=== PATIENT | female | born 1965 | race Caucasian/White ===

== ENCOUNTER → 2017-11-22 | Outpatient (CLI) | payer BC ==
[~2017-11-22] MED LIST: CIPR500T78 PO; HYDR-1231 PO; METR500T PO
== END ==
LOC: CARD 10:23
PROVIDERS: ATTEND Family Medicine
DX: R07.9 Chest pain, unspecified (principal); I10 Essential (primary) hypertension
CPT/HCPCS: 93306

== ENCOUNTER 2017-11-25 19:41 | Observation (INO) | payer BC ==
[~2017-11-25] VITALS: Ht 162.6 cm; Wt 104.3 kg
[2017-11-25] MEDS ORDERED: ASPIRIN 81 MG CHEW (CHILDREN'S ASA) PO ONE (20:00)
[2017-11-25] MEDS ORDERED: NITROGLYCERIN 0.4 MG SL TABS BTL 25'S SL PRN (20:00)
--- NOTE | 2017-11-25 20:00 | ED Chest Pain ---
General Chief Complaint: Chest Pain Stated Complaint: CHEST PAIN Nursing Triage Note: pt presents to ed with complaint of chest pressure, low heart ratte, heart palpitations, light headedness, and left arm pain/tingling. Nursing Sepsis Screen: No Definite Risk Source: patient Exam Limitations: no limitations History of Present Illness Date Seen by Provider: Nov 25, 2017 Time Seen by Provider: 19:57 Initial Comments To ER with reports of central chest tightness that began about one hour ago. She rates this at 5 out of 10. This radiates down the left arm as a tingling sensation. She's been having this for the past few weeks intermittently. Primary care Dr. Marquez has ordered an echocardiogram which has been done a few days ago. She is scheduled for a stress test, this was initially scheduled for one month away but her sister who works here was able to get this moved up to next week. Tonight, the chest pain was associated with shortness of breath and nausea so sister who is a nurse insisted she come to the emergency room for evaluation. She does feel intermittently anxious and had difficulty concentrating. She cannot identify any modifying factors of this chest pain. She is a nonsmoker. Mother and father both had CHF. Mother had an CT. Patient has no known personal history of cardiac disease. She is scheduled to see Dr. Campbell but has not seen him yet. Timing/Duration: 1-2 days Severity/Quality: moderate Activities at Onset: none ASA po CLINICAL PRODUCT MANAGER: No NTG SL CLINICAL PRODUCT MANAGER: No Associated Symptoms: nausea/vomiting Allergies and Home Medications Allergies Coded Allergies: No Known Drug Allergies (Unverified , 07/30/14) Home Medications Ciprofloxacin HCl 500 Mg Tablet, 500 MG PO BID, #20 Prescribed by: PETEY ARENAS on 07/30/142129 Hydrochlorothiazide 12.5 Mg Tablet, (Reported) Hydrocodone Bit/Acetaminophen 1 Tab Tablet, 1 TAB PO Q6H PRN for PAIN, #14 Prescribed by: PETEY ARENAS on 07/30/142129 Lisinopril/Hydrochlorothiazide 1 Each Tablet, (Reported) Metronidazole 500 Mg Tab, 1 EACH PO TID, #30 Prescribed by: PETEY ARENAS on 07/30/142129 Review of Systems Constitutional: see HPI EENTM: No Symptoms Reported Respiratory: No Symptoms Reported, Shortness of Air Cardiovascular: See HPI, Chest Pain, Lightheadedness, Palpitations ( intermittent sensation of palpitations associated with anxiety) Genitourinary: No Symptoms Reported Musculoskeletal: no symptoms reported Skin: no symptoms reported Psychiatric/Neurological: See HPI, Anxiety Endocrine: No Symptoms Reported Hematologic/Lymphatic: No Symptoms Reported Past Kiohztw-Wznsno-Ujdgza Hx Patient Social History Recent Foreign Travel: No Contact w/Someone Who Travel: No Recent Infectious Disease Expo: No 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 Gastrointestinal Gastrointestinal Disorders: Hiatal Hernia Physical Exam Vital Signs Vital Sign - Last 12Hours 11/25/17 19:44 Temp 97.6 Pulse 59 Resp 18 B/P (MAP) 201/90 (127) Pulse Ox 100 O2 Delivery Room Air Capillary Refill : Less Than 3 Seconds General Appearance: No Apparent Distress, WD/WN, Anxious HEENT: PERRL/EOMI, TMs Normal Respiratory: Chest Non Tender, Lungs Clear, Normal Breath Sounds, No Accessory Muscle Use, No Respiratory Distress Cardiovascular: Regular Rate, Rhythm, Normal Peripheral Pulses, Other (sinus at 55-65 without ectopy) Gastrointestinal: Normal Bowel Sounds, Non Tender, Soft Extremity: Normal Capillary Refill, Normal Inspection Neurologic/Psychiatric: Alert, No Motor/Sensory Deficits Skin: Normal Color, Warm/Dry Progress/Results/Core Measures Results/Orders Lab Results Laboratory Tests Test 11/25/17 19:57 Range/Units White Blood Count 11.7 H 4.3-11.0 10^3/uL Red Blood Count 4.95 4.35-5.85 10^6/uL Hemoglobin 14.5 11.5-16.0 G/DL Hematocrit 42 35-52 % Mean Corpuscular Volume 85 80-99 FL Mean Corpuscular Hemoglobin 29 25-34 PG Mean Corpuscular Hemoglobin Concent 35 32-36 G/DL Red Cell Distribution Width 12.9 10.0-14.5 % Platelet Count 320 130-400 10^3/uL Mean Platelet Volume 11.3 H 7.4-10.4 FL Neutrophils (%) (Auto) 64 42-75 % Lymphocytes (%) (Auto) 25 12-44 % Monocytes (%) (Auto) 9 0-12 % Eosinophils (%) (Auto) 1 0-10 % Basophils (%) (Auto) 1 0-10 % Neutrophils # (Auto) 7.6 1.8-7.8 X 10^3 Lymphocytes # (Auto) 3.0 1.0-4.0 X 10^3 Monocytes # (Auto) 1.0 0.0-1.0 X 10^3 Eosinophils # (Auto) 0.1 0.0-0.3 10^3/uL Basophils # (Auto) 0.1 0.0-0.1 10^3/uL Prothrombin Time 13.0 12.2-14.7 SEC INR Comment 1.0 0.8-1.4 Activated Partial Thromboplast Time 31 24-35 SEC D-Dimer < 0.27 0.00-0.49 UG/ML Sodium Level 130 L 135-145 MMOL/L Potassium Level 3.7 3.6-5.0 MMOL/L Chloride Level 95 L 98-107 MMOL/L Carbon Dioxide Level 23 21-32 MMOL/L Anion Gap 12 5-14 MMOL/L Blood Urea Nitrogen 12 7-18 MG/DL Creatinine 0.79 0.60-1.30 MG/DL Estimat Glomerular Filtration Rate > 60 BUN/Creatinine Ratio 15 Glucose Level 112 H 70-105 MG/DL Calcium Level 9.7 8.5-10.1 MG/DL Magnesium Level 2.1 1.8-2.4 MG/DL Total Bilirubin 0.8 0.1-1.0 MG/DL Aspartate Amino Transf (AST/SGOT) 20 5-34 U/L Alanine Aminotransferase (ALT/SGPT) 26 0-55 U/L Alkaline Phosphatase 82 40-136 U/L Myoglobin 29.6 10.0-92.0 NG/ML Troponin I < 0.30 <0.30 NG/ML Total Protein 8.2 6.4-8.2 GM/DL Albumin 4.6 H 3.2-4.5 GM/DL My Orders Orders - PETEY ARENAS PROTECTIVE SERVICE SPECIALIST Cbc With Automated Diff (11/25/17 19:56) Magnesium (11/25/17 19:56) Chest 1 View, Ap/Pa Only (11/25/17 19:56) Ekg Tracing (11/25/17 19:56) Cardiac Profile 1 (11/25/17 19:56) Comprehensive Metabolic Panel (11/25/17 19:56) Myoglobin Serum (11/25/17 19:56) Protime With Inr (11/25/17 19:56) Partial Thromboplastin Time (11/25/17 19:56) O2 (11/25/17 19:56) Monitor-Rhythm Ecg Trace Only (11/25/17 19:56) Lipid Panel (11/26/17 06:00) Aspirin Chewable Tablet (Baby Aspirin Ch (11/25/17 20:00) Nitroglycerin 0.4 Mg Btl 25's (Nitrostat (11/25/17 20:00) Saline Lock/Iv-Start (11/25/17 19:56) Fibrin Degradation Products (11/25/17 20:00) Medications Given in ED Current Medications Medications Dose Ordered Sig/Freya Route Start Time Stop Time Status Last Admin Dose Admin Aspirin 324 mg ONCE ONCE PO 11/25/17 20:00 11/25/17 20:01 DC 11/25/17 20:01 324 MG Nitroglycerin 0.4 mg UD PRN SL 11/25/17 20:00 11/25/17 20:01 0.4 MG Vital Signs/I&O Vital Sign - Last 12Hours 11/25/17 19:44 Temp 97.6 Pulse 59 Resp 18 B/P (MAP) 201/90 (127) Pulse Ox 100 O2 Delivery Room Air Blood Pressure Mean: 127 Departure Impression Impression: Primary Impression: Chest pain Disposition: ADMITTED INPATIENT Condition: Stable Admissions Decision to Admit Reason: Admit from ER (General) Decision to Admit/Date: Nov 25, 2017 Time/Decision to Admit Time: 20:00 Departure-Patient Inst. Referrals: WILLIAM MARQUEZ DO (PCP/Family) Primary Care Physician PETEY ARENAS APRN Nov 25, 2017 20:00
[2017-11-25 20:09] LABS: BASOPHILS # (AUTO) 0.1 10^3/uL (0.0-0.1); BASOPHILS % (AUTO) 1 % (0-10); EOSINOPHILS # (AUTO) 0.1 10^3/uL (0.0-0.3); EOSINOPHILS % (AUTO) 1 % (0-10); HEMATOCRIT 42 % (35-52); HEMOGLOBIN 14.5 G/DL (11.5-16.0); LYMPHOCYTES % (AUTO) 25 % (12-44); MEAN CORPUSCULAR HEMOGLOBIN 29 PG (25-34); MEAN CORPUSCULAR HGB CONC 35 G/DL (32-36); MEAN CORPUSCULAR VOLUME 85 FL (80-99); MEAN PLATELET VOLUME 11.3 FL (7.4-10.4); MONOCYTES % (AUTO) 9 % (0-12); NEUTROPHILS # (AUTO) 7.6 X 10^3 (1.8-7.8); NEUTROPHILS % (AUTO) 64 % (42-75); PLATELET COUNT 320 10^3/uL (130-400); RED BLOOD COUNT 4.95 10^6/uL (4.35-5.85); RED CELL DISTRIBUTION WIDTH 12.9 % (10.0-14.5); WHITE BLOOD COUNT 11.7 10^3/uL (4.3-11.0)
[2017-11-25] MEDS ORDERED: HYDR12.56 PO (20:14)
[2017-11-25] MEDS ORDERED: LISI1TAB6 PO (20:14)
[2017-11-25 20:19] LABS: ALANINE AMINOTRANSFERASE 26 U/L (0-55); ALBUMIN 4.6 GM/DL (3.2-4.5); ALKALINE PHOSPHATASE 82 U/L (40-136); BILIRUBIN,TOTAL 0.8 MG/DL (0.1-1.0); BUN/CREATININE RATIO 15; CALCIUM 9.7 MG/DL (8.5-10.1); CARBON DIOXIDE 23 MMOL/L (21-32); CHLORIDE 95 MMOL/L (98-107); CREATININE SERUM 0.79 MG/DL (0.60-1.30); GFR ESTIMATED > 60; GLUCOSE 112 MG/DL (70-105); MAGNESIUM 2.1 MG/DL (1.8-2.4); POTASSIUM 3.7 MMOL/L (3.6-5.0); SODIUM 130 MMOL/L (135-145); TOTAL PROTEIN 8.2 GM/DL (6.4-8.2)
--- NOTE | 2017-11-25 20:23 | Diagnostic Imaging Report ---
CHEST 1 VIEW, AP/PA ONLY Indication: Chest pressure Comparison: 06/01/2016 Findings: No focal airspace disease in the visualized lungs. Please note that the posterior lower lobes are poorly evaluated by portable radiography. No pleural effusion or pneumothorax. Normal cardiomediastinal silhouette. Impression: No acute cardiopulmonary process by portable radiography. Dictated by: Dictated on workstation # [id number]
[2017-11-25 20:26] LABS: MYOGLOBIN SERUM 29.6 NG/ML (10.0-92.0)
[2017-11-25 21:40] VITALS: BP 166/81
[2017-11-25] MEDS ORDERED: NS IV 1000 ML 1,000 ML ONE (22:41)
[2017-11-25] MEDS: NS IV 1000 ML 1,000 ML IV SCH (22:53)
[2017-11-26] VITALS (7 sets, daily range): BP systolic 115–193; BP diastolic 57–84
[2017-11-26 06:26] LABS: CHOLESTEROL 174 MG/DL (< 200); HDL CHOLESTEROL 47 MG/DL (40-60); TRIGLYCERIDES 100 MG/DL (<150); VLDL CHOLESTEROL 20 MG/DL (5-40)
[2017-11-26] MEDS ORDERED: CATHETER FLUSH 10 ML SYR IV PRN (07:00)
[2017-11-26] MEDS ORDERED: INFLUENZA TRIvalent 2017-2018 0.5 ML/45 MCG SYR IM ONE (07:00)
[2017-11-26] MEDS ORDERED: REGADENOSON 0.4 MG/5 ML SYR (LEXISCAN) IV ONE ×2 (08:44→09:15)
--- NOTE | 2017-11-26 09:06 | Consultation-Cardiology ---
HPI-Cardiology Cardiology Consultation: Date of Consultation 11/26/17 Date of Admission Attending Physician Rafaela Marquez DO Admitting Physician Rafaela Marquez DO Consulting Physician Edilma MCLAUGHLIN MD HPI: Time Seen by Provider: 09:10 Chief Complaint: Chest pain This is a 52-year-old lady with history of hypertension who presents to the ER with a complaint of central chest tightness for around an hour. Intensity 5/ 10. Radiates to the left arm. She has been having recurrent episodes of chest pain for the last few weeks. Primary physician is Dr. Marquez. She also complains of associated shortness of breath and nausea. She denies active smoking. Mother had history of CHF. She denies having history of diabetes or hyperlipidemia. T Review of Systems-Cardiology Review of Systems Constitutional: No As described under HPI, No no symptoms reported, No chills, No fever, No lightheadedness, No malaise, No tiredness, No weight loss, No weight gain, No other Eyes: No As described under HPI, No no symptoms reported, No blindness, No blurred vision, No contact lenses, No drainage, No decreased acuity, No foreign body sensation, No glasses, No inflammation, No pain, No photophobia, No previous injury, No shadows, No tunnel vision, No other, No vision change Ears/Nose/Throat: No As described under HPI, No no symptoms reported, No chronic hearing loss, No epistaxis, No ear discharge, No ear pain, No loose teeth, No mouth pain, No mouth swelling, No nasal drainage, No nose pain, No recent hearing loss, No throat pain, No throat swelling, No ulcerations, No other Respiratory: No no symptoms reported, No As described under HPI, No cough, No orthopnea, No shortness of breath, No SOB with excertion, No SOB at rest, No stridor, No wheezing, No other Cardiovascular: chest pain Gastrointestinal: No no symptoms reported, No As described under HPI, No abdomen distended, No abdominal pain, No blood streaked bowels, No constipation , No diarrhea, No difficulty swallowing, No nausea, No poor appetite, No poor fluid intake, No rectal bleeding, No vomiting, No other, No nausea/vomiting/ diarrhea, No stool coloration changes Genitourinary: No no symptoms reported, No As described under HPI, No burning, No dysuria, No discharge, No frequency, No flank pain, No hematuria, No incontinence, No pain, No urgency, No other, No urine frequency changes, No urine coloration changes Musculoskeletal: No no symptoms reported, No As describe under HPI, No back pain, No gout, No joint pain, No joint swelling, No muscle pain, No muscle stiffness, No neck pain, No other Skin: No no symptoms reported, No As described under HPI, No change in color, No change in hair/nails, No dryness, No lesions, No lumps, No rash, No other, No skin related problems, No ulcerations, No rash on exposed areas, No ulcerations on exposed areas Psychiatric/Neurological: No no symptoms reported, No As described under HPI, No anxiety, No depression, No emotional problems, No headache, No numbness, No pre-existing deficit, No seizure, No tingling, No tremors, No weakness, No other , No focal weakness, No syncope MQS-Lvdruw-Pptulz Hx Patient Social History Alcohol Use: Occasionally Uses Recreational Drug Use: No Smoking Status: Never a Smoker Recent Foreign Travel: No Recent Infectious Disease Expo: No Hospitalization with Isolation: Denies Physical Abuse Screen: No Sexual Abuse: No Past Medical History PMH As described under Assessment. Allergies and Home Medications Allergies Coded Allergies: No Known Drug Allergies (Unverified , 07/30/14) Home Medications Aspirin 81 Mg Tab.chew, 81 MG PO HS, (Reported) Lisinopril/Hydrochlorothiazide 1 Each Tablet, 1 TAB PO DAILY, (Reported) Physical Exam-Cardiology Physical Exam Vital Signs/I&O Vital Sign - Last 12Hours 11/26/17 11/26/17 11/26/17 11/26/17 00:00 01:00 04:00 07:45 Temp 97.4 97.5 Pulse 65 51 53 Resp 16 17 B/P (MAP) 115/57 (76) 151/71 (97) Pulse Ox 97 99 99 O2 Delivery Room Air Room Air Room Air 11/26/17 11/26/17 11/26/17 11/26/17 08:00 08:56 09:02 09:06 Temp 98.0 Pulse 51 60 127 103 Resp 20 B/P (MAP) 179/79 (112) 135/72 (93) 193/84 (120) Pulse Ox 99 99 99 99 O2 Delivery Room Air Capillary Refill : Less Than 3 Seconds Constitutional: No appears stated age, No AAO x 3, No apparent distress, No PERRL, No well-developed, No well-nourished, No other HEENT: No PERRL, No normal ENT inspection, No TMs normal, No pharynx normal, No scleral icterus (R), No scleral icterus (L), No pale conjunctivae (R), No pale conjunctivae (L), No photophobia, No TM abnormal (R), No TM abnormal (L), No pharyngeal erythema, No tonsillar exudate, No other, No discharge, No EOMI, No hearing is well preserved, No hard of hearing, No oral hygience is good, No ulceration, No xanthelasmas are seen Neck: No non-tender, No full range of motion, No supple, No normal inspection, No carotid bruit, No limited range of motion, No lymphadenopathy (R), No lymphadenopathy (L), No tender lateral, No tender midline, No thyromegaly, No other, No carotid pulses are 2 + bilaterally, No with good upstrokes Respiratory: No accessory muscle use, No respiratory distress, No chest tender , No chest expansion is symmetric, No chest is bilaterally symmetric, No lungs clear to percussion, No lungs clear to auscultation, No crackles, No rhonchi, No rales, No stridor, No wheezing, No pleural rub, No other Cardiovascular: regular rate-rhythm, No irregularly irregular, No extra beats, No parasternal heave is noted, No JVD, No edema, No bradycardia, No tachycardia , No point of maximal impulse, No cardiac thrills are palpable, S1 and S2, No gallop/S3, No gallop/S4, No diastolic murmur, No systolic murmur, No friction rub, No click, No other Gastrointestinal: No tender, No soft, No round, No distended, No pulsatile mass , No organomegaly, No guarding, No rebound, No tenderness, No hernia, No mass, No audible bowel sounds, No abnormal bowel sounds, No abdominal bruits, No spleenomegaly, No other Rectal: deferred Extremities: No normal range of motion, No non-tender, No normal inspection, No pedal edema, No calf tenderness, No normal capillary refill, No pelvis stable , No calf tenderness, No inflammation, No pedal edema, No slow capillary refill , No swelling, No other, No abrasion, No clubbing, No cyanosis, No ecchymosis, No laceration, No no lower extremity edema bilateral, No significant edema, No tenderness, No wound Neurologic/Psychiatric: No slot router II-XII nml as tested, No no motor/sensory deficits, No alert, No normal mood/affect, No oriented x 3, No abnormal cerebellar tests, No abnormal slot router II-XII, No abnormal gait, No aphasia, No EOM palsy, No facial droop, No motor weakness, No sensory deficit, No depressed affect, No disoriented x 3, No other, No grossly intact, No power is 5/5 both on sides Skin: No normal color, No warm/dry, No cyanosis, No cool, No diaphoresis, No damp, No ecchymosis, No jaundice, No mottled, No pallor, No rash, No tattoos/ piercings, No ulcerations, No rash on exposed areas, No ulcerations on exposed areas, No other Data Review Labs Laboratory Tests 11/25/17 19:57: White Blood Count 11.7H, Red Blood Count 4.95, Hemoglobin 14.5, Hematocrit 42, Mean Corpuscular Volume 85, Mean Corpuscular Hemoglobin 29, Mean Corpuscular Hemoglobin Concent 35, Red Cell Distribution Width 12.9, Platelet Count 320, Mean Platelet Volume 11.3H, Neutrophils (%) (Auto) 64, Lymphocytes (%) (Auto) 25 , Monocytes (%) (Auto) 9, Eosinophils (%) (Auto) 1, Basophils (%) (Auto) 1, Neutrophils # (Auto) 7.6, Lymphocytes # (Auto) 3.0, Monocytes # (Auto) 1.0, Eosinophils # (Auto) 0.1, Basophils # (Auto) 0.1, Prothrombin Time 13.0, INR Comment 1.0, Activated Partial Thromboplast Time 31, D-Dimer < 0.27, Sodium Level 130L, Potassium Level 3.7, Chloride Level 95L, Carbon Dioxide Level 23, Anion Gap 12, Blood Urea Nitrogen 12, Creatinine 0.79, Estimat Glomerular Filtration Rate > 60, BUN/Creatinine Ratio 15, Glucose Level 112H, Calcium Level 9.7, Magnesium Level 2.1, Total Bilirubin 0.8, Aspartate Amino Transf (AST /SGOT) 20, Alanine Aminotransferase (ALT/SGPT) 26, Alkaline Phosphatase 82, Myoglobin 29.6, Troponin I < 0.30, Total Protein 8.2, Albumin 4.6H 11/26/17 02:00: Troponin I < 0.30 11/26/17 05:35: Triglycerides Level 100, Cholesterol Level 174, LDL Cholesterol Direct 112, VLDL Cholesterol 20, HDL Cholesterol 47 ECG Impression ECG Initial ECG Rhythm: Normal Sinus Initial ECG Impression: Normal A/P-Cardiology Assessment/Admission Diagnosis Chest pain, Hypertension Plan Acute coronary syndrome has been ruled out with negative serial troponin and EKG. We'll request echocardiogram and pharmacological nuclear stress test. If the nuclear stress test is abnormal, coronary angiography will be recommended. Patient will continue lisinopril and hydrochlorothiazide for hypertension. Thank you for your consultation. Please call me if you have any questions. Maureen Mclaughlin MD, FACP, FACC, FSCAI, FHRS, CCDS Interventional Cardiology Cardiac Electrophysiology Vascular Medicine and Endovascular Interventions Clinical Quality Measures AMI/AHF: ASA po Prior to arrival: No DVT/VTE Risk/Contraindication: Risk Factor Score Per Nursin RFS Level Per Nursing on Admit: 2=Moderate Edilma MCLAUGHLIN MD Nov 26, 2017 09:06
[2017-11-26] MEDS ORDERED: ASPI-999 PO (10:38)
[2017-11-26] MEDS: NS IV 1000 ML 1,000 ML IV SCH (10:42)
--- NOTE | 2017-11-26 11:39 | History & Physicial ---
History of Present Illness History of Present Illness Reason for visit/HPI This is a 52 year old female with a history of hypertension who presented to the emergency room with substernal chest pressure radiating to her left arm. She also had associated shortness of breath and nausea. She has had intermittent chest pressure the past few weeks and was in the process of an outpatient cardiac workup. However, this episode had lasted at least an hour so she presented to the emergency room. She also reports palpitations. She was anxious with an elevated blood pressure in the emergency room. Her cardiac enzymes and EKG were normal and her blood pressure and chest pain improved after nitro. It was decided to admit her for observation and cardiac evaluation. Date of Admission Nov 25, 2017 at 8:56 pm Date Seen by Provider: Nov 26, 2017 Time Seen by Provider: 11:34 I consulted on this patient on 11/26/17 11:34 Attending Physician Rafaela Marquez DO Admitting Physician Rafaela Marquez DO Consult Allergies and Home Medications Allergies Coded Allergies: No Known Drug Allergies (Unverified , 07/30/14) Home Medications Aspirin 81 Mg Tab.chew, 81 MG PO HS, (Reported) Lisinopril/Hydrochlorothiazide 1 Each Tablet, 1 TAB PO DAILY, (Reported) Past Zvgxwlq-Twocsw-Npaezm Hx Patient Social History Alcohol Use: Occasionally Uses Recreational Drug Use: No Smoking Status: Never a Smoker Physical Abuse Screen: No Sexual Abuse: No Recent Foreign Travel: No Contact w/other who traveled: No Recent Infectious Disease Expo: No Seasonal Allergies Seasonal Allergies: Yes Surgeries Yes (TUBAL SX, EGD, breast implants, colonoscopy) Hysterectomy Respiratory Yes Currently Using CPAP: Yes Cardiovascular Yes Hypertension, Palpitations 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 Genitourinary No Gastrointestinal Yes Diverticulosis Musculoskeletal Yes Arthritis Endocrine History of Endocrine Disorders: No HEENT History of HEENT Disorders: No Cancer No Psychosocial History of Psychiatric Problem: No Integumentary History of Skin or Integumenta: Yes (SHINGLES) Blood Transfusions History of Blood Disorders: No Constitutional: weakness EENTM: No see HPI, No no symptoms reported, No ear discharge, No hearing loss, No ear pain, No blurred vision, No double vision, No eye pain, No tearing, No vision loss, No dental problems, No hoarseness, No mouth pain, No mouth swelling , No epistaxis, No nose congestion, No nose pain, No throat pain, No throat swelling, No other Respiratory: short of breath Cardiovascular: chest pain, palpitations Gastrointestinal: No RUQ, No LUQ, No RLQ, No LLQ, No no symptoms reported, No see HPI, No abdominal pain, No constipation, No diarrhea, No dysphagia, No hematemesis, No heartburn, No jaundice, No loss of appetite, No melena, No nausea, No vomiting, No other Genitourinary: No no symptoms reported, No see HPI, No decreased output, No discharge, No dysuria, No frequency, No hematuria, No hesitancy, No incontinence , No nocturia, No pain, No other Musculoskeletal: other (CP radiates to left arm) Skin: No no symptoms reported, No see HPI, No change in color, No change in hair/nails, No dryness, No hx of skin cancer, No lesions, No lumps, No pruritus , No rash, No other Psychiatric/Neurological: Anxiety, Headache Physical Exam Vital Signs Vital Sign - Last 12Hours 11/25/17 19:44 Temp 97.6 Pulse 59 Resp 18 B/P (MAP) 201/90 (127) Pulse Ox 100 O2 Delivery Room Air Capillary Refill : Less Than 3 Seconds General Appearance: No Apparent Distress HEENT: Pharynx Normal Neck: Supple Respiratory: Lungs Clear Cardiovascular: Regular Rate, Rhythm, Gallop/S4 Gastrointestinal: Normal Bowel Sounds, Non Tender, Soft Rectal: Deferred Back: No CVA Tenderness Extremity: Non Tender, No Calf Tenderness, Pedal Edema (trace) Neurologic/Psychiatric: Alert, Oriented x3 Skin: Normal Color, Warm/Dry Comments Laboratory Tests 11/25/17 19:57: White Blood Count 11.7H, Red Blood Count 4.95, Hemoglobin 14.5, Hematocrit 42, Mean Corpuscular Volume 85, Mean Corpuscular Hemoglobin 29, Mean Corpuscular Hemoglobin Concent 35, Red Cell Distribution Width 12.9, Platelet Count 320, Mean Platelet Volume 11.3H, Neutrophils (%) (Auto) 64, Lymphocytes (%) (Auto) 25 , Monocytes (%) (Auto) 9, Eosinophils (%) (Auto) 1, Basophils (%) (Auto) 1, Neutrophils # (Auto) 7.6, Lymphocytes # (Auto) 3.0, Monocytes # (Auto) 1.0, Eosinophils # (Auto) 0.1, Basophils # (Auto) 0.1, Prothrombin Time 13.0, INR Comment 1.0, Activated Partial Thromboplast Time 31, D-Dimer < 0.27, Sodium Level 130L, Potassium Level 3.7, Chloride Level 95L, Carbon Dioxide Level 23, Anion Gap 12, Blood Urea Nitrogen 12, Creatinine 0.79, Estimat Glomerular Filtration Rate > 60, BUN/Creatinine Ratio 15, Glucose Level 112H, Calcium Level 9.7, Magnesium Level 2.1, Total Bilirubin 0.8, Aspartate Amino Transf (AST /SGOT) 20, Alanine Aminotransferase (ALT/SGPT) 26, Alkaline Phosphatase 82, Myoglobin 29.6, Troponin I < 0.30, Total Protein 8.2, Albumin 4.6H 11/26/17 02:00: Troponin I < 0.30 11/26/17 05:35: Triglycerides Level 100, Cholesterol Level 174, LDL Cholesterol Direct 112, VLDL Cholesterol 20, HDL Cholesterol 47 Assessment/Plan Assessment and Plan 1. Chest Pain, Uncertain Etiology--monitor on telemetry, repeat cardiac enzymes , stress test per cardiology 2. Hypertension--responded to nitro in the ER, will monitor and resume home meds or change meds per cardioly once no longer NPO and stress test results reviewed 3. Anxiety--stable 4. Hyponatremia--hyrate with NS Problems: Clinical Quality Measures AMI/AHF: ASA po Prior to arrival: No DVT/VTE Risk/Contraindication: Risk Factor Score Per Nursin RFS Level Per Nursing on Admit: 2=Moderate RAFAELA MARQUEZ DO Nov 26, 2017 11:39 am
--- NOTE | 2017-11-26 13:32 | Cardiology Stress Test Report ---
Stress Test Report Type of NM Stress Test: Test Type: LEXISCAN 0.4MG/5ML Date of Procedure/Referring: PCP Rafaela Marquez DO Admitting Physician Rafaela Marquez DO Indications: Chest pain, hypertension Baseline Heart Rate: 58 Baseline Blood Pressure: Blood Pressure Systolic: 135 Blood Pressure Diastolic: 72 Baseline EKG: Baseline EKG: sinus rhythm Summary: The patient the patient was brought to the stress lab after informed consent was taken. Lexiscan stress test was performed according to the protocol. 0.4 mg of IV Lexiscan was given. Low-grade exercise was performed. Baseline EKG showed sinus rhythm at 58 BPM. Blood pressure 135/72 mmHg. Maximum heart rate of 147 BPM and blood pressure of 193/84 mmHg. No chest pain, EKG changes or arrhythmias was noted. 10.79 mCi of Myoview was given for rest imaging and 33.0 mCi of Myoview was given for stress imaging. Transient ischemic dilatation 1.08. EF 63 percent with normal wall motion. No perfusion defects on rest and stress imaging. Conclusion: 1. Pharmacological nuclear stress test is normal. 2. Normal ejection fraction with no wall motion abnormalities. 3. Severe hypertension. 4. No perfusion defect on stress or rest imaging. Edilma WILLAMS MD Nov 26, 2017 1:32 pm
--- OUTSIDE RECORDS SUMMARY | 2017-11-28 06:06 | XMS REPORT | Continuity of Care Document ---
Author Author [facility] Organization [facility] Address Unknown Phone Unavailable Allergies Active Description Code Type Severity Reaction Onset Reported/Identified Relationship to Patient Clinical Status Yes No Known Drug Allergies [id number] Drug Allergy Unknown N/A 07/30/2014 Medications There is no data. Problems Date Dx Coded Attending Type Code Diagnosis Diagnosed By 07/30/2014 PETEY ARENAS APRN Ot 562.11 DIVERTICULITIS COLON (W/O MENT OF HEMORR 07/30/2014 PETEY ARENAS APRN Ot 780.60 FEVER, UNSPECIFIED 05/27/2016 JACKLYN MARTINEZ Ot V43.82 BREAST REPLACEMENT STATUS 05/27/2016 JACKLYN MARTINEZ Ot V76.12 OTH SCREEN MAMMO-MALIGN NEOPLASM OF SOY 05/27/2016 ORENDER DO, WILLIAM S Ot R05 COUGH 05/28/2016 YULY BHATT APRN Ot R05 COUGH 05/29/2016 ORENDER DO, WILLIAM S Ot R05 COUGH 06/02/2016 ORENDER DO, WILLIAM S Ot R05 COUGH 06/10/2016 ORENDER DO, WILLIAM S Ot R05 COUGH 06/12/2016 YULY BHATT AIRCRAFT DE ICER INSTALLER Ot R05 COUGH 06/12/2016 ORENDER DO, WILLIAM S Ot R05 COUGH 06/29/2016 ORENDER DO, WILLIAM S Ot R05 COUGH 07/22/2016 ORENDER DO, WILLIAM S Ot R05 COUGH 10/01/2016 JACKLYN MARTINEZ Ot V43.82 BREAST REPLACEMENT STATUS 10/01/2016 JACKLYN MARTINEZ Ot V76.12 OTH SCREEN MAMMO-MALIGN NEOPLASM OF SOY 10/01/2016 ORENDER DO, WILLIAM S Ot R05 COUGH 10/01/2016 YULY BHATT APRN Ot R05 COUGH 10/01/2016 ORENDER DO, WILLIAM S Ot R05 COUGH 10/02/2016 ORENDER DO, WILLIAM S Ot G47.33 OBSTRUCTIVE SLEEP APNEA (ADULT) (PEDIATR 02/16/2017 YULY BHATT AIRCRAFT DE ICER INSTALLER Ot R05 COUGH 11/18/2017 ORENDER DO, WILLIAM S Ot R05 COUGH 11/18/2017 YULY BHATT AIRCRAFT DE [employer] INSTALLER Ot R05 COUGH 11/18/2017 ORENDER DO, WILLIAM S Ot R05 COUGH 11/22/2017 JACKLYN MARTINEZ Ot V43.82 BREAST REPLACEMENT STATUS 11/22/2017 JACKLYN MARTINEZ Ot V76.12 OTH SCREEN MAMMO-MALIGN NEOPLASM OF SOY 11/22/2017 ORENDER DO, WILLIAM S Ot R05 COUGH 11/22/2017 YULY BHATT AIRCRAFT [employer] INSTALLER Ot R05 COUGH 11/22/2017 ORENDER DO, WILLIAM S Ot R05 COUGH 11/23/2017 ORENDER DO, WILLIAM S Ot I10 ESSENTIAL (PRIMARY) HYPERTENSION 11/23/2017 ORENDER DO, WILLIAM S Ot R07.9 CHEST PAIN, UNSPECIFIED 11/24/2017 JACKLYN MARTINEZ Ot V43.82 BREAST REPLACEMENT STATUS 11/24/2017 JACKLYN MARTINEZ Ot V76.12 OTH SCREEN MAMMO-MALIGN NEOPLASM OF SOY 11/24/2017 ORENDER DO, WILLIAM S Ot R05 COUGH 11/24/2017 YULY BHATT AIRCRAFT [employer] INSTALLER Ot R05 COUGH 11/24/2017 ORENDER DO, WILLIAM S Ot R05 COUGH 11/24/2017 ORENDER DO, WILLIAM S Ot I10 ESSENTIAL (PRIMARY) HYPERTENSION 11/24/2017 ORENDER DO, WILLIAM S Ot R07.9 CHEST PAIN, UNSPECIFIED Procedures There is no data. Results Test Result Range PT panel in platelet poor plasma by coagulation assay - 11/25/17 19:57 Prothrombin time (PT) in platelet poor plasma by coagulation assay 13.0 s 12.2-14.7 INR in platelet poor plasma or blood by coagulation assay 1.0 0.8-1.4 Activated partial thromboplastin time (aPTT) in platelet poor plasma bycoagulation assay - 11/25/17 19:57 Activated partial thromboplastin time (aPTT) in platelet poor plasma bycoagulation assay 31 s 24-35 Complete blood count (CBC) with automated white blood cell (WBC) differential - 11/25/17 19:57 Blood leukocytes automated count (number/volume) 11.7 10*3/uL 4.3-11.0 Blood erythrocytes automated count (number/volume) 4.95 10*6/uL 4.35-5.85 Venous blood hemoglobin measurement (mass/volume) 14.5 g/dL 11.5-16.0 Blood hematocrit (volume fraction) 42 % 35-52 Automated erythrocyte mean corpuscular volume 85 [foz_us] 80-99 Automated erythrocyte mean corpuscular hemoglobin (mass per erythrocyte) 29 pg 25-34 Automated erythrocyte mean corpuscular hemoglobin concentration measurement ( mass/volume) 35 g/dL 32-36 Automated erythrocyte distribution width ratio 12.9 % 10.0-14.5 Automated blood platelet count (count/volume) 320 10*3/uL 130-400 Automated blood platelet mean volume measurement 11.3 [foz_us] 7.4-10.4 Automated blood neutrophils/100 leukocytes 64 % 42-75 Automated blood lymphocytes/100 leukocytes 25 % 12-44 Blood monocytes/100 leukocytes 9 % 0-12 Automated blood eosinophils/100 leukocytes 1 % 0-10 Automated blood basophils/100 leukocytes 1 % 0-10 Blood neutrophils automated count (number/volume) 7.6 10*3 1.8-7.8 Blood lymphocytes automated count (number/volume) 3.0 10*3 1.0-4.0 Blood monocytes automated count (number/volume) 1.0 10*3 0.0-1.0 Automated eosinophil count 0.1 10*3/uL 0.0-0.3 Automated blood basophil count (count/volume) 0.1 10*3/uL 0.0-0.1 Fibrin D-dimer FEU measurement in platelet poor plasma (mass/volume) - 19:57 Fibrin D-dimer FEU measurement in platelet poor plasma (mass/volume) < ug/mL 0.00-0.49 Comprehensive metabolic panel - 11/25/17 19:57 Serum or plasma sodium measurement (moles/volume) 130 mmol/L 135-145 Serum or plasma potassium measurement (moles/volume) 3.7 mmol/L 3.6-5.0 Serum or plasma chloride measurement (moles/volume) 95 mmol/L 98-107 Carbon dioxide 23 mmol/L 21-32 Serum or plasma anion gap determination (moles/volume) 12 mmol/L 5-14 Serum or plasma urea nitrogen measurement (mass/volume) 12 mg/dL 7-18 Serum or plasma creatinine measurement (mass/volume) 0.79 mg/dL 0.60-1.30 Serum or plasma urea nitrogen/creatinine mass ratio 15 NRG Serum or plasma creatinine measurement with calculation of estimated glomerular filtration rate > NRG Serum or plasma glucose measurement (mass/volume) 112 mg/dL 70-105 Serum or plasma calcium measurement (mass/volume) 9.7 mg/dL 8.5-10.1 Serum or plasma total bilirubin measurement (mass/volume) 0.8 mg/dL 0.1-1.0 Serum or plasma alkaline phosphatase measurement (enzymatic activity/volume) 82 U/L 40-136 Serum or plasma aspartate aminotransferase measurement (enzymatic activity/ volume) 20 U/L 5-34 Serum or plasma alanine aminotransferase measurement (enzymatic activity/volume ) 26 U/L 0-55 Serum or plasma protein measurement (mass/volume) 8.2 g/dL 6.4-8.2 Serum or plasma albumin measurement (mass/volume) 4.6 g/dL 3.2-4.5 Magnesium - 11/25/17 19:57 Magnesium 2.1 mg/dL 1.8-2.4 Serum or plasma troponin i.cardiac measurement (mass/volume) - 11/25/17 19:57 Serum or plasma troponin i.cardiac measurement (mass/volume) < ng/ mL <0.30 Myoglobin, serum - 11/25/17 19:57 Myoglobin, serum 29.6 ng/mL 10.0-92.0 Serum or plasma troponin i.cardiac measurement (mass/volume) - 11/26/17 02:00 Serum or plasma troponin i.cardiac measurement (mass/volume) < ng/ mL <0.30 Lipid 1996 panel - 11/26/17 05:35 Serum or plasma triglyceride measurement (mass/volume) 100 mg/dL <150 Serum or plasma cholesterol measurement (mass/volume) 174 mg/dL < 200 Serum or plasma cholesterol in HDL measurement (mass/volume) 47 mg/ dL 40-60 Cholesterol in LDL [mass/volume] in serum or plasma by direct assay 112 mg/dL 1-129 Serum or plasma cholesterol in VLDL measurement (mass/volume) 20 mg/ dL 5-40 Encounters ACCT No. Visit Date/Time Discharge Status Pt. Type Provider Facility Loc./Unit Complaint [id number] 11/25/2017 20:56:00 11/26/2017 14:46:00 DIS Inpatient ORENDER DO, WILLIAM S [facility] 4TH CHEST PAIN [id number] 11/22/2017 10:23:00 11/22/2017 23:59:59 CLS Outpatient ORENDER DO, WILLIAM S [facility] CARD CHEST PAIN [id number] 10/01/2016 19:40:00 10/02/2016 07:00:00 DIS Outpatient ORENDER DO, WILLIAM S [facility] SLEEP ROSSI [id number] 06/01/2016 15:31:00 06/01/2016 23:59:59 CLS Outpatient ORENDER DO, WILLIAM S [facility] RAD R05 [id number] 05/27/2016 12:33:00 05/27/2016 23:59:59 CLS Outpatient YULY BHATT AIRCRAFT [employer] INSTALLER [facility] RT COUGH [id number] 05/12/2016 11:30:00 05/12/2016 23:59:59 CLS Outpatient ORENDER DO, WILLIAM S [facility] RAD COUGH [id number] 07/30/2014 20:03:00 07/30/2014 21:42:00 DIS Emergency PETEY ARENAS AIRCRAFT [employer] INSTALLER [facility] ER FEVER,NAUSEA [id number] 10/30/2013 09:13:00 10/30/2013 23:59:59 CLS Outpatient JACKLYN MARTINEZ [facility] RAD SCREENING [id number] 12/15/2017 10:30:00 PEN Preadmit ORENDER DO, WILLIAM S [facility] CARD CHEST PAIN [id number] 11/29/2017 11:30:00 PEN Preadmit ORENDER DO, WILLIAM S [facility] CARD I49.9
--- OUTSIDE RECORDS SUMMARY | 2017-11-28 06:06 | XMS REPORT ---
Author Author YA POMPA Organization [employer] Address Unknown Phone Unavailable Care Team Providers Care [employer] Clerk Name Role Phone YA POMPA Unavailable Allergies No Known Allergies Problems Problem Type Condition Code Onset Dates Condition Status Assessment Encounter for immunization Z23 Active Medications No Known Medications Procedures Procedure Coding System Code Date FLUARIX QUAD (3 & UP)-GSK-2014 CPT-4 95946 Aug 16, 2015 SINGLE IMMUNIZATION ADMIN CPT-4 26887 Aug 16, 2015 TDAP (BOOSTRIX) CPT-4 35320 Aug 16, 2015 IMMUNIZATION ADMIN, EACH ADD (please include units) CPT-4 09343 Aug 16, 2015 Results No Known Results Immunizations Vaccine Administration Date TDAP (BOOSTRIX) Aug 16, 2015 FLUARIX QUAD (3 & UP)-GSK-2014Aug 16, 2015 Summary Purpose [employer] Submission
--- OUTSIDE RECORDS SUMMARY | 2017-11-28 06:06 | XMS REPORT ---
Author YA [facility] [employer] Address Unknown Phone Unavailable Care Team Providers Care Boxer Operator Name Role Phone YA POMPA CP Unavailable Allergies, Adverse Reactions, Alerts Substance Reaction Event Type N.K.D.A. Info Not Available Non Drug Allergy Problems Problem Type Condition Code Onset Dates Condition Status Assessment Paronychia of finger of left hand L03.012 Active Medications Medication Code System Code Instructions Start Date End Date Status Dosage Cephalexin [facility] [address]-11 500 MG Orally Twice a day Aug 19, 2016Aug 1 capsule Procedures Procedure Coding System Code Date Office Visit, Est Pt., Level 3 CPT-4 40105 Aug 19, 2016 Vital Signs Date/Time: Aug 19, 2016 Cardiac Monitoring Heart Rate 80 bpm Weight 228 lbs Height 65 in BMI 37.94 Index Blood Pressure Diastolic 90 mmHg Blood Pressure Systolic 160 mmHg Results No Known Results Summary Purpose [employer] Submission
--- OUTSIDE RECORDS SUMMARY | 2017-11-28 06:06 | XMS REPORT ---
Author Author YA POMPA [facility] [employer] Address Unknown Phone Unavailable Care Team Providers Care Parts Inspector Name Role Phone YA POMPA Unavailable Allergies No Known Allergies Problems Problem Type Condition Code Onset Dates Condition Status Assessment Encounter for immunization Z23 Active Medications No Known Medications Procedures Procedure Coding System Code Date SINGLE IMMUNIZATION ADMIN CPT-4 72216 Aug 03, 2016 FLUARIX QUAD P-FREE 3 AND UP .50 2015 CPT-4 14865 Aug 03, 2016 Results No Known Results Immunizations Vaccine Administration Date FLUARIX QUAD P-FREE 3 AND UP .50 2015Aug 03, 2016 Summary Purpose [employer] Submission
== END 2017-11-26 14:11 | disposition home or self-care (01) ==
LOC: EDUNIT# 19:41 → ER 19:43 → UNDOADMOB 20:56 → 4TH 20:56 → UNDODISOB 11-26 14:46
PROVIDERS: ADMIT Family Medicine; ATTEND Family Medicine
DX: R07.9 Chest pain, unspecified (principal); I10 Essential (primary) hypertension; F41.9 Anxiety disorder, unspecified; E87.1 Hypo-osmolality and hyponatremia
CPT/HCPCS: 36415; 71045; 78452; 80053; 80061; 83735; 83874; 84484; 85025; 85379; 85610; 85730; 93005; 93017; 93041; 93306; G0378

== ENCOUNTER → 2017-11-29 | Outpatient (CLI) | payer BC ==
[~2017-11-29] MED LIST changes: +ASPI-999 PO; +HYDR12.56 PO; +LISI1TAB6 PO
== END ==
LOC: CARD 11:04
PROVIDERS: ATTEND Family Medicine
DX: I49.9 Cardiac arrhythmia, unspecified (principal)
CPT/HCPCS: 93225; 93226

== ENCOUNTER → 2017-12-03 | Outpatient (CLI) | payer BC ==
--- NOTE | 2017-12-03 08:32 | Diagnostic Imaging Report ---
INDICATION: Right upper quadrant and epigastric pain. The liver is normal in size at 16.5 cm. There is increased echogenicity consistent with hepatic steatosis. No discrete liver mass is identified. The gallbladder is without stones or sludge. No wall thickening or pericholecystic fluid is seen. There is no biliary ductal dilatation. Visualized pancreas is unremarkable. The right kidney is unremarkable. There is no ascites. IMPRESSION: Hepatic steatosis. Study is otherwise unremarkable. Dictated by: Dictated on workstation # [id number]
== END ==
LOC: RAD 06:51
PROVIDERS: ATTEND Family Medicine
DX: K76.0 Fatty (change of) liver, not elsewhere classified (principal)
CPT/HCPCS: 76705

== ENCOUNTER → 2017-12-13 | Outpatient (CLI) | payer BC ==
--- NOTE | 2017-12-13 08:05 | Diagnostic Imaging Report ---
PROCEDURE: CT head without contrast. TECHNIQUE: Multiple contiguous axial images were obtained through the brain without the use of intravenous contrast. INDICATION: Visual changes, headache, pain. FINDINGS: There are no findings of a hemorrhage. No focal or generalized edema. Graham-white matter differentiations maintained. The basilar cisterns patent and sulci non-effaced. Orbits, sinuses and calvarium unremarkable. IMPRESSION: Normal CT of the head. Dictated by: Dictated on workstation # [id number]
== END ==
LOC: RAD 07:24
PROVIDERS: ATTEND Family Medicine
DX: H53.9 Unspecified visual disturbance (principal)
CPT/HCPCS: 70450

== ENCOUNTER → 2017-12-20 | Outpatient (CLI) | payer BC ==
[~2017-12-20] MED LIST changes: +CATHETER FLUSH 10 ML SYR IV PRN
--- NOTE | 2017-12-20 12:33 | Diagnostic Imaging Report ---
INDICATION: Right upper quadrant abdominal pain After intravenous administration of 4.9 mCi technetium 99m Choletec, scintigraphic images are obtained over the abdomen. There is normal distribution of activity on initial images. There is prompt appearance of activity in the biliary tree, gallbladder and small bowel. Patient did receive fatty meal with gallbladder ejection fraction calculated to be 51%. This is in the normal range. Impression: Normal hepatobiliary scan. Dictated by: Dictated on workstation # [id number]
== END ==
LOC: CARD 09:50
PROVIDERS: ATTEND Family Medicine
DX: R10.11 Right upper quadrant pain (principal)
CPT/HCPCS: 78227

== ENCOUNTER 2017-12-30 05:33 | Outpatient (CLI) | payer BC ==
[~2017-12-30] VITALS: Ht 162.6 cm; Wt 104.3 kg
[~2017-12-30 05:33] MED LIST changes: -CATHETER FLUSH 10 ML SYR IV PRN
[2017-12-30] MEDS ORDERED: LISI10TA2 PO (13:10)
[2017-12-30] MEDS ORDERED: CITA10TA7 PO (13:10)
[2017-12-30] MEDS ORDERED: PANT40TA3 PO (13:10)
== END 2017-12-30 13:11 ==
LOC: PREOP 05:33
PROVIDERS: ATTEND Surgery
DX: Z01.818 Encounter for other preprocedural examination (principal); R10.11 Right upper quadrant pain

== ENCOUNTER 2018-01-04 12:57 | Day surgery (SDC) | payer BC ==
[~2018-01-04] VITALS: Ht 162.6 cm; Wt 104.3 kg
[~2018-01-04 12:57] MED LIST changes: +CITA10TA7 PO; +LISI10TA2 PO; +PANT40TA3 PO
--- OUTSIDE RECORDS SUMMARY | 2018-01-04 13:01 | XMS REPORT | Continuity of Care Document ---
Author Author [employer] Organization [facility] Address Unknown Phone Unavailable Care Team Providers Care Disc Inspector Name Role Phone [employer] Unavailable Unavailable Problems Medications Allergies, Adverse Reactions, Alerts Immunizations Results Vital Signs Encounters Location Location Details Encounter Type Encounter Number Reason For Visit Attending Provider ADM Date DC Date Status Source O EDDIE LEONARD 01/12/2018 Active [facility] Procedures Plan of Care Social History Assessment and Plan Family History Advance Directives Functional Status
--- OUTSIDE RECORDS SUMMARY | 2018-01-04 13:02 | XMS REPORT | Continuity of Care Document ---
Author Author [facility] Organization [facility] Address Unknown Phone Unavailable Allergies Active Description Code Type Severity Reaction Onset Reported/Identified Relationship to Patient Clinical Status Yes No Known Drug Allergies [id number] Drug Allergy Unknown N/A 07/30/2014 Medications There [...] S Ot R05 COUGH 06/12/2016 YULY BHATT BUFFING WHEEL OPERATOR Ot R05 COUGH 06/12/2016 ORENDER DO, WILLIAM [...] SLEEP APNEA (ADULT) (PEDIATR 02/16/2017 YULY BHATT BUFFING WHEEL OPERATOR Ot R05 COUGH 11/18/2017 ORENDER DO, WILLIAM S Ot R05 COUGH 11/18/2017 YULY BHATT BUFFING WHEEL OPERATOR Ot R05 COUGH 11/18/2017 ORENDER DO, WILLIAM S Ot R05 COUGH 11/22/2017 JACKLYN MARTINEZ Ot V43.82 BREAST REPLACEMENT STATUS 11/22/2017 JACKLYN MARTINEZ Ot V76.12 OTH SCREEN MAMMO-MALIGN NEOPLASM OF SOY 11/22/2017 ORENDER DO, WILLIAM S Ot R05 COUGH 11/22/2017 YULY BHATT BUFFING WHEEL OPERATOR Ot R05 COUGH 11/22/2017 ORENDER DO, WILLIAM S Ot R05 COUGH 11/23/2017 ORENDER DO, WILLIAM S Ot I10 ESSENTIAL (PRIMARY) HYPERTENSION 11/23/2017 ORENDER DO, WILLIAM S Ot R07.9 CHEST PAIN, UNSPECIFIED 11/24/2017 JACKLYN MARTINEZ Ot V43.82 BREAST REPLACEMENT STATUS 11/24/2017 JACKLYN MARTINEZ Ot V76.12 OTH SCREEN MAMMO-MALIGN NEOPLASM OF SOY 11/24/2017 ORENDER DO, WILLIAM S Ot R05 COUGH 11/24/2017 YULY BHATT BUFFING WHEEL OPERATOR Ot R05 COUGH 11/24/2017 ORENDER DO, WILLIAM S Ot R05 COUGH 11/24/2017 ORENDER DO, WILLIAM S Ot I10 ESSENTIAL (PRIMARY) HYPERTENSION 11/24/2017 ORENDER DO, WILLIAM S Ot R07.9 CHEST PAIN, UNSPECIFIED 11/26/2017 ORENDER DO, WILLIAM S Ot E87.1 HYPO-OSMOLALITY AND HYPONATREMIA 11/26/2017 ORENDER DO, WILLIAM S Ot F41.9 ANXIETY DISORDER, UNSPECIFIED 11/26/2017 ORENDER DO, WILLIAM S Ot I10 ESSENTIAL (PRIMARY) HYPERTENSION 11/26/2017 ORENDER DO, WILLIAM S Ot R07.9 CHEST PAIN, UNSPECIFIED 11/30/2017 ORENDER DO, WILLIAM S Ot I49.9 CARDIAC ARRHYTHMIA, UNSPECIFIED 12/02/2017 ORENDER DO, WILLIAM S Ot I10 ESSENTIAL (PRIMARY) HYPERTENSION 12/02/2017 ORENDER DO, WILLIAM S Ot R07.9 CHEST PAIN, UNSPECIFIED 12/06/2017 ORENDER DO, WILLIAM S Ot K76.0 FATTY (CHANGE OF) LIVER, NOT ELSEWHERE C 12/09/2017 ORENDER DO, WILLIAM S Ot I49.9 CARDIAC ARRHYTHMIA, UNSPECIFIED 12/10/2017 JACKLYN MARTINEZ Ot V43.82 BREAST REPLACEMENT STATUS 12/10/2017 JACKLYN MARTINEZ Ot V76.12 OTH SCREEN MAMMO-MALIGN NEOPLASM OF SOY 12/10/2017 ORENDER DO, WILLIAM S Ot R05 COUGH 12/10/2017 YULY BHATT BUFFING WHEEL OPERATOR Ot R05 COUGH 12/10/2017 ORENDER DO, WILLIAM S Ot R05 COUGH 12/10/2017 ORENDER DO, WILLIAM S Ot I10 ESSENTIAL (PRIMARY) HYPERTENSION 12/10/2017 ORENDER DO, WILLIAM S Ot R07.9 CHEST PAIN, UNSPECIFIED 12/10/2017 ORENDER DO, WILLIAM S Ot I49.9 CARDIAC ARRHYTHMIA, UNSPECIFIED 12/10/2017 ORENDER DO, WILLIAM S Ot K76.0 FATTY (CHANGE OF) LIVER, NOT ELSEWHERE C 12/14/2017 ORENDER DO, WILLIAM S Ot H53.9 UNSPECIFIED VISUAL DISTURBANCE 12/15/2017 ORENDER DO, WILLIAM S Ot K76.0 FATTY (CHANGE OF) LIVER, NOT ELSEWHERE C 12/20/2017 JACKLYN MARTINEZ Ot V43.82 BREAST REPLACEMENT STATUS 12/20/2017 JACKLYN MARTINEZ Ot V76.12 OTH SCREEN MAMMO-MALIGN NEOPLASM OF SOY 12/20/2017 ORENDER DO, WILLIAM S Ot R05 COUGH 12/20/2017 YULY BHATT BUFFING WHEEL OPERATOR Ot R05 COUGH 12/20/2017 ORENDER DO, WILLIAM S Ot R05 COUGH 12/20/2017 ORENDER DO, WILLIAM S Ot I10 ESSENTIAL (PRIMARY) HYPERTENSION 12/20/2017 ORENDER DO, WILLIAM S Ot R07.9 CHEST PAIN, UNSPECIFIED 12/20/2017 WILLIAM KESSLER DO Ot I49.9 CARDIAC ARRHYTHMIA, UNSPECIFIED 12/20/2017 WILLIAM KESSLER DO Ot K76.0 FATTY (CHANGE OF) LIVER, NOT ELSEWHERE C 12/20/2017 WILLIAM KESSLER DO Ot H53.9 UNSPECIFIED VISUAL DISTURBANCE 12/29/2017 WILLIAM KESSLER DO Ot H53.9 UNSPECIFIED VISUAL DISTURBANCE 01/03/2018 YISEL OVIEDO DO Ot R10.11 RIGHT UPPER QUADRANT PAIN 01/03/2018 YISEL OVIEDO DO Ot Z01.818 ENCOUNTER FOR OTHER PREPROCEDURAL EXAMIN Procedures There is no data. Results Test [...] Status Pt. Type Provider Facility Loc./Unit Complaint [id number] 12/30/2017 05:33:00 12/30/2017 13:11:00 DIS Outpatient YISEL OVIEDO DO [facility] PREOP EGD [id number] 12/20/2017 09:50:00 12/20/2017 23:59:59 CLS Outpatient WILLIAM KESSLER DO [facility] CARD RUQ PAIN [id number] 12/15/2017 10:30:00 12/15/2017 23:59:59 CLS Preadmit WILLIAM KESSLER DO [facility] CARD CHEST PAIN [id number] 12/13/2017 07:24:00 12/13/2017 23:59:59 CLS Outpatient WILLIAM KESSLER DO [facility] RAD VISION CHANGES, HEADACHE [id number] 12/03/2017 06:51:00 12/03/2017 23:59:59 CLS Outpatient ORENDER DO, WILLIAM S [facility] RAD RUQ/EPIGASTRIC PAIN [id number] 11/29/2017 11:04:00 11/29/2017 23:59:59 CLS Outpatient ORENDER DO, WILLIAM S [facility] CARD I49.9 [id number] 11/25/2017 21:40:00 11/26/2017 14:11:00 DIS Inpatient ORENDER DO, WILLIAM S [facility] 4TH CHEST PAIN [id number] 11/22/2017 10:23:00 11/22/2017 23:59:59 CLS Outpatient ORENDER DO, WILLIAM S [facility] CARD CHEST PAIN [id number] 10/01/2016 19:40:00 10/02/2016 07:00:00 DIS Outpatient ORENDER DO, WILLIAM S [facility] SLEEP ROSSI [id number] 06/01/2016 15:31:00 06/01/2016 23:59:59 CLS Outpatient ALISIANDER DO, WILLIAM S [facility] RAD R05 [id number] 05/27/2016 12:33:00 05/27/2016 23:59:59 CLS Outpatient YULY BHATT BUFFING WHEEL OPERATOR [facility] RT COUGH [id number] 05/12/2016 11:30:00 05/12/2016 23:59:59 CLS Outpatient ALISIANDER DO, WILLIAM S [facility] RAD COUGH [id number] 07/30/2014 20:03:00 07/30/2014 21:42:00 DIS Emergency PETEY ARENAS BUFFING WHEEL OPERATOR [facility] ER FEVER,NAUSEA [id number] 10/30/2013 09:13:00 10/30/2013 23:59:59 CLS Outpatient JACKLYN MARTINEZ [facility] RAD SCREENING [id number] 01/04/2018 14:45:00 PEN Preadmit YISEL OVIEDO DO [facility] ENDO RIGHT UPPER ABD PAIN
[2018-01-04] MEDS ORDERED: LACTATED RINGERS 1,000 ML IV STA (13:07)
[2018-01-04] MEDS ORDERED: LACTATED RINGERS 1,000 ML IV ONE (13:07)
[2018-01-04] MEDS ORDERED: HURRICAINE EXT TUBE (BENZOCAINE) XX PRN (13:15)
[2018-01-04 13:16] VITALS: BP 184/87
== END 2018-01-04 14:20 | disposition home or self-care (01) ==
LOC: ENDO 12:57
PROVIDERS: ATTEND Surgery
DX: R10.11 Right upper quadrant pain (principal); Z53.8 Procedure and treatment not carried out for other reasons
CPT/HCPCS: 84703

== ENCOUNTER 2018-01-07 07:58 | Day surgery (SDC) | payer BC ==
[~2018-01-07] VITALS: Ht 162.6 cm; Wt 104.3 kg
[2018-01-07] MEDS ORDERED: LACTATED RINGERS 1,000 ML IV ONE ×2 (08:01→09:04)
[2018-01-07 08:17] VITALS: BP 143/89
[2018-01-07] MEDS ORDERED: LACTATED RINGERS 1,000 ML IV STA (08:20)
[2018-01-07] MEDS ORDERED: HURRICAINE EXT TUBE (BENZOCAINE) XX PRN (08:30)
[2018-01-07] MEDS ORDERED: MIDAZOLAM 2 MG/2 ML (VERSED) VIAL ONE (08:55)
[2018-01-07] MEDS ORDERED: PROPOFOL INJECTION 50 ML IV ONE (08:55)
[2018-01-07] MEDS ORDERED: HURRICAINE EXT TUBE (BENZOCAINE) ONE (09:00)
[2018-01-07] MEDS ORDERED: LACTATED RINGERS 1,000 ML IV SCH (09:30)
[2018-01-07 09:55] VITALS: BP 126/76
[2018-01-07 10:25] VITALS: BP 131/79
--- NOTE | 2018-01-07 10:44 | Progress Note-Pre Operative ---
Pre-Operative Progress Note H&P Reviewed The H&P was reviewed, patient examined and no changes noted. Date Seen by Provider: Jan 07, 2018 Time Seen by Provider: 08:00 Date H&P Reviewed: Jan 07, 2018 Time H&P Reviewed: 08:00 Pre-Operative Diagnosis: ruq abdominal pain, blood in stools YISEL OVIEDO DO Jan 07, 2018 10:44
--- NOTE | 2018-01-07 10:49 | Progress Note-Post Operative ---
Post-Operative Progess Note Surgeon (s)/Recorder [employer] (s) Surgeon YISEL OVIEDO DO Recorder [employer]: na Pre-Operative Diagnosis ruq abdominal pain, blood in stools Post-Operative Diagnosis gastritis, hiatal hernia, posterior anal fissure, diverticulosis, colitis sigmoid colon Procedure & Operative Findings Date of Procedure 01/07/18 Procedure Performed/Findings egd c biopsies, colonoscpy c cold biopsy sigmoid colon Anesthesia Type per green end department supervisor Estimated Blood Loss Estimated blood loss (mL): none Specimens/Packing Specimens Removed antrum, ge and sigmoid colon YISEL OVIEDO DO Jan 07, 2018 10:49
[2018-01-07] MEDS ORDERED: DOCU-143 PO (10:51)
--- NOTE | 2018-01-07 10:52 | Discharge Inst-Simple/Standard ---
Discharge Inst-Standard Discharge Medications New, Converted or Re-Newed RX: Transmitted to Pharmacy Patient Instructions/Follow Up Plan of Care/Instructions/FU: 3 weeks Paulo Activity as Tolerated: Yes Discharge Diet: Regular Diet (high fiber) YISEL OVIEDO DO Jan 07, 2018 10:52
[2018-01-07 11:05] VITALS: BP 131/79
--- NOTE | 2018-01-07 14:56 | Anesthesia-General Post-Op ---
MAC Patient Condition Mental Status/LOC: Same as Preop Cardiovascular: Satisfactory Nausea/Vomiting: Absent Respiratory: Satisfactory Pain: Controlled Complications: Absent Post Op Complications Complications None Follow Up Care/Instructions Patient Instructions None needed. Anesthesiology Discharge Order Discharge Order Patient is doing well, no complaints, stable vital signs, no apparent adverse anesthesia problems. No complications reported per nursing. MODE LEONARDO CRNA Jan 07, 2018 14:56
--- NOTE | 2018-01-07 17:24 | OPERATIVE REPORT ---
DATE OF SERVICE: 01/07/2018 PREOPERATIVE DIAGNOSIS: Right upper quadrant abdominal pain, blood in stools. POSTOPERATIVE DIAGNOSIS: Gastritis, hiatal hernia, posterior anal fissure, diverticulosis colitis of the sigmoid colon. PROCEDURE: EGD with biopsies and colonoscopy with cold biopsy of sigmoid colon. SURGEON: Yisel Bates DO ANESTHESIA: Per CHILDREN'S ENTERTAINER. ESTIMATED BLOOD LOSS: None. COMPLICATIONS: None. INDICATIONS: The patient is a 52-year-old female, who has been having right upper quadrant abdominal pain and recent bright red blood in the stools. She understands risks and benefits of procedure and wished to proceed with procedure. Consent was signed and is on chart. DESCRIPTION OF PROCEDURE: The patient was taken to the endoscopy suite, placed in the left lateral recumbent position. Timeout was performed. Scope was inserted in mouth, down the esophagus, stomach and into the duodenum without difficulty. There were polyps, masses or ulcerations within the duodenum. Scope was then slowly retracted back into the stomach where it was further insufflated. Some slight erythematous changes consistent with some early gastritis was present. Biopsy of the antrum was obtained. The scope was also retroflexed noting a small hiatal hernia. No other pathology noted. Scope was returned to its normal position, slowly withdrawn back to the distal esophagus. The biopsy of the GE junction was obtained and a biopsy of the antrum and previously have been obtained as well. The scope was then continuously retracted back until completely remove. A rectal exam was performed. Noting posterior anal fissure. There were no other polyps, masses or ulcerations. The scope was inserted in the rectum, advanced all the way to the cecum with minimal difficulty. Prep was adequate. Scope was then slowly retracted back. There were no polyps, masses or ulcerations of the cecum, ascending, transverse and descending colon. Within the sigmoid colon, there is some erythematous changes throughout short segment. There is also some diverticulosis present. Cold biopsies of this area were obtained. Scope was then continuously retracted back into the rectum, where it was also retroflexed. No other pathology noted. Scope was returned to its normal position, slowly withdrawn to completely remove. RECOMMENDATIONS: The patient will need repeat colonoscopy in 5 years due to family history of colon cancer. If she has any problems prior to that, she should be reevaluated at that time. The patient will be reexamined in the office in 3 weeks. She has a posterior anal fissure. We will increase fiber intake and stool softener. We will also consider cream if not healed up. The patient is to continue on Protonix. We will consider adding Carafate. Job ID: [id number] DocumentID: [id number] Dictated Date: 01/07/2018 11:24:01 Automatic Lathe Setter Date: 01/07/2018 17:23:43 Dictated By: YISEL BATES DO
--- OUTSIDE RECORDS SUMMARY | 2018-01-09 03:58 | XMS REPORT | Continuity of Care Document ---
Author Author [employer] Organization [facility] Address Unknown Phone Unavailable Care Team Providers Care Manager Family Name Role Phone [employer] Unavailable Unavailable Problems Medications Allergies, Adverse Reactions, Alerts Immunizations Results Vital Signs Encounters Location Location Details Encounter Type Encounter Number Reason For Visit Attending Provider ADM Date DC Date Status Source O EDDIE PONCEON 01/12/2018 Active [facility] Procedures Plan of Care Social History Assessment and Plan Family History Advance Directives Functional Status
--- OUTSIDE RECORDS SUMMARY | 2018-01-09 03:59 | XMS REPORT | Continuity of Care Document ---
Author Author [facility] Organization [facility] Address Unknown Phone Unavailable Allergies Active Description Code Type Severity Reaction Onset Reported/Identified Relationship to Patient Clinical Status Yes No Known Drug Allergies [id number] Drug Allergy Unknown N/A 07/30/2014 Medications There [...] S Ot R05 COUGH 06/12/2016 YULY BHATT PROJECT MANAGER Ot R05 COUGH 06/12/2016 ORENDER DO, WILLIAM [...] SLEEP APNEA (ADULT) (PEDIATR 02/16/2017 YULY BHATT PROJECT MANAGER Ot R05 COUGH 11/18/2017 ORENDER DO, WILLIAM S Ot R05 COUGH 11/18/2017 YULY BHATT PROJECT MANAGER Ot R05 COUGH 11/18/2017 ORENDER DO, WILLIAM S Ot R05 COUGH 11/22/2017 JACKLYN MARTINEZ Ot V43.82 BREAST REPLACEMENT STATUS 11/22/2017 JACKLYN MARTINEZ Ot V76.12 OTH SCREEN MAMMO-MALIGN NEOPLASM OF SOY 11/22/2017 ORENDER DO, WILLIAM S Ot R05 COUGH 11/22/2017 YULY BHATT PROJECT MANAGER Ot R05 COUGH 11/22/2017 ORENDER DO, WILLIAM S Ot R05 COUGH 11/23/2017 ORENDER DO, WILLIAM S Ot I10 ESSENTIAL (PRIMARY) HYPERTENSION 11/23/2017 ORENDER DO, WILLIAM S Ot R07.9 CHEST PAIN, UNSPECIFIED 11/24/2017 JACKLYN MARTINEZ Ot V43.82 BREAST REPLACEMENT STATUS 11/24/2017 JACKLYN MARTINEZ Ot V76.12 OTH SCREEN MAMMO-MALIGN NEOPLASM OF SOY 11/24/2017 ORENDER DO, WILLIAM S Ot R05 COUGH 11/24/2017 YULY BHATT PROJECT MANAGER Ot R05 COUGH 11/24/2017 ORENDER DO, WILLIAM [...] S Ot R05 COUGH 12/10/2017 YULY BHATT PROJECT MANAGER Ot R05 COUGH 12/10/2017 ORENDER DO, WILLIAM [...] S Ot R05 COUGH 12/20/2017 YULY BHATT PROJECT MANAGER Ot R05 COUGH 12/20/2017 ORENDER DO, WILLIAM [...] VLDL measurement (mass/volume) 20 mg/ dL 5-40 Urine beta human chorionic gonadotropin (hCG) measurement - 01/04/18 13:10 Urine beta human chorionic gonadotropin (hCG) measurement NEGATIVE NEGATIVE Encounters ACCT No. Visit Date/Time Discharge Status Pt. Type Provider Facility Loc./Unit Complaint [id number] 01/04/2018 12:57:00 01/04/2018 23:59:59 CLS Outpatient YISEL OVIEDO DO [facility] ENDO RIGHT UPPER ABD PAIN [id number] 12/30/2017 05:33:00 12/30/2017 13:11:00 DIS Outpatient YISEL OVIEDO DO [facility] PREOP EGD [id number] 12/20/2017 09:50:00 12/20/2017 23:59:59 CLS Outpatient KATYA WILLIAM GARCIA [facility] CARD RUQ PAIN [id number] 12/15/2017 10:30:00 12/15/2017 23:59:59 CLS Preadmit ORENDER DO, WILLIAM S [facility] CARD CHEST PAIN [id number] 12/13/2017 07:24:00 12/13/2017 23:59:59 CLS Outpatient ORENDER DO, WILLIAM S [facility] RAD VISION CHANGES, HEADACHE [id number] 12/03/2017 06:51:00 12/03/2017 23:59:59 CLS Outpatient ORENDER DO, WILLIAM S [facility] RAD RUQ/EPIGASTRIC PAIN [id number] 11/29/2017 11:04:00 11/29/2017 23:59:59 CLS Outpatient ORENDER DO, WILLIAM S [facility] CARD I49.9 [id number] 11/25/2017 21:40:00 11/26/2017 14:11:00 DIS Inpatient ORENDER DO, WILLIAM S [facility] 4TH CHEST PAIN [id number] 11/22/2017 10:23:00 11/22/2017 23:59:59 CLS Outpatient ORENDER DO, WILLIAM S [facility] CARD CHEST PAIN [id number] 10/01/2016 19:40:00 10/02/2016 07:00:00 DIS Outpatient ORENDER DO, WILLIAM S [facility] SLEEP ROSSI [id number] 06/01/2016 15:31:00 06/01/2016 23:59:59 CLS Outpatient ORENDER DO, WILLIAM S [facility] RAD R05 [id number] 05/27/2016 12:33:00 05/27/2016 23:59:59 CLS Outpatient YULY BHATT PROJECT MANAGER [facility] RT COUGH [id number] 05/12/2016 11:30:00 05/12/2016 23:59:59 CLS Outpatient ORENDER DO, WILLIAM S [facility] RAD COUGH [id number] 07/30/2014 20:03:00 07/30/2014 21:42:00 DIS Emergency PETEY ARENAS PROJECT MANAGER [facility] ER FEVER,NAUSEA [id number] 10/30/2013 09:13:00 10/30/2013 23:59:59 CLS Outpatient KIERSTEN RICHARDS, JACKLYN Aguero [facility] RAD SCREENING
== END 2018-01-07 11:05 | disposition home or self-care (01) ==
LOC: ENDO 07:58
PROVIDERS: ATTEND Surgery
DX: K60.2 Anal fissure, unspecified (principal); K57.30 Diverticulosis of large intestine without perforation or abscess without bleeding; K52.9 Noninfective gastroenteritis and colitis, unspecified; K29.70 Gastritis, unspecified, without bleeding; K21.9 Gastro-esophageal reflux disease without esophagitis; K44.9 Diaphragmatic hernia without obstruction or gangrene; Z80.0 Family history of malignant neoplasm of digestive organs; I10 Essential (primary) hypertension; G47.33 Obstructive sleep apnea (adult) (pediatric); E66.9 Obesity, unspecified; Z68.39 Body mass index [BMI] 39.0-39.9, adult; Z79.82 Long term (current) use of aspirin; Z79.899 Other long term (current) drug therapy

== ENCOUNTER 2019-01-02 14:20 | Emergency (ER) | payer BC ==
[~2019-01-02] VITALS: Ht 162.6 cm; Wt 104.3 kg
[~2019-01-02 14:20] MED LIST changes: +DOCU-143 PO
[2019-01-02] MEDS ORDERED: ASPIRIN 81 MG CHEW (CHILDREN'S ASA) ONE (14:36)
[2019-01-02 14:37] LABS: BASOPHILS # (AUTO) 0.1 10^3/uL (0.0-0.1); BASOPHILS % (AUTO) 1 % (0-10); EOSINOPHILS # (AUTO) 0.1 10^3/uL (0.0-0.3); EOSINOPHILS % (AUTO) 1 % (0-10); HEMATOCRIT 41 % (35-52); HEMOGLOBIN 13.4 G/DL (11.5-16.0); LYMPHOCYTES # (AUTO) 2.2 X 10^3 (1.0-4.0); LYMPHOCYTES % (AUTO) 18 % (12-44); MEAN CORPUSCULAR HEMOGLOBIN 29 PG (25-34); MEAN CORPUSCULAR HGB CONC 33 G/DL (32-36); MEAN CORPUSCULAR VOLUME 89 FL (80-99); MEAN PLATELET VOLUME 10.8 FL (7.4-10.4); MONOCYTES # (AUTO) 0.7 X 10^3 (0.0-1.0); MONOCYTES % (AUTO) 5 % (0-12); NEUTROPHILS # (AUTO) 9.2 X 10^3 (1.8-7.8); NEUTROPHILS % (AUTO) 75 % (42-75); PLATELET COUNT 318 10^3/uL (130-400); RED CELL DISTRIBUTION WIDTH 13.4 % (10.0-14.5); WHITE BLOOD COUNT 12.2 10^3/uL (4.3-11.0)
[2019-01-02] MEDS ORDERED: NITROGLYCERIN 0.4 MG SL TABS BTL 25'S SL PRN (14:45)
[2019-01-02] MEDS ORDERED: ASPIRIN 81 MG CHEW (CHILDREN'S ASA) PO ONE (14:45)
[2019-01-02 14:49] LABS: PROTHROMBIN TIME PATIENT 13.4 SEC (12.2-14.7)
[2019-01-02 14:56] LABS: ALANINE AMINOTRANSFERASE 28 U/L (0-55); ALBUMIN 4.6 GM/DL (3.2-4.5); ALKALINE PHOSPHATASE 98 U/L (40-136); BILIRUBIN,TOTAL 0.6 MG/DL (0.1-1.0); BUN/CREATININE RATIO 15; CALCIUM 10.1 MG/DL (8.5-10.1); CARBON DIOXIDE 25 MMOL/L (21-32); CHLORIDE 101 MMOL/L (98-107); CREATININE SERUM 0.85 MG/DL (0.60-1.30); GFR ESTIMATED > 60; GLUCOSE 106 MG/DL (70-105); MAGNESIUM 2.4 MG/DL (1.8-2.4); POTASSIUM 3.6 MMOL/L (3.6-5.0); SODIUM 137 MMOL/L (135-145); TOTAL PROTEIN 8.1 GM/DL (6.4-8.2)
[2019-01-02 15:02] LABS: MYOGLOBIN SERUM 29.7 NG/ML (10.0-92.0)
--- NOTE | 2019-01-02 15:02 | NUR ---
PATIENT STATES HER CHEST PAIN WAS COMPLETELY RELIEVED WITH ONE NITRO SUBLINGUAL TABLET. SHE IS RESTING QUIETLY IN BED WITH NO COMPLAINTS AT THIS TIME.
--- NOTE | 2019-01-02 15:14 | Diagnostic Imaging Report ---
INDICATION: Chest pressure. TIME OF EXAM: 3:05 p.m. COMPARISON: Correlation is made with prior study from 11/25/2017. FINDINGS: The heart size is normal. The pulmonary vascularity is unremarkable. The lungs are clear. No infiltrate, effusion or pneumothorax is detected. IMPRESSION: No acute cardiopulmonary process is detected. Dictated by: Dictated on workstation # [id number]
[2019-01-02 15:45] VITALS: BP 123/65
--- NOTE | 2019-01-02 16:21 | ED Chest Pain ---
General Chief Complaint: Chest Pain Stated Complaint: CHEST PRESSURE Nursing Triage Note: PATIENT AMBULATORY TO ER WITH FAMILY MEMBER COMPLAINING OF CHEST PRESSURE THAT BEGAN EARLY WEDNESDAY MORNING. PATIENT STATES CHEST PRESSURE WAS INTERMITTENT PRIOR TO TODAY BUT TODAY HAS BEEN CONSTANT. SHE IS ALSO COMPLAINING OF TIGHTNESS PRESENT TO HER JAW AND IN THE BASE OF HER HEAD. PATIENT STATES SHE TOOK TWO ALEVE EARLIER TODAY WITH MINIMAL RELIEF. Nursing Sepsis Screen: No Definite Risk Source: patient, family, old records Exam Limitations: no limitations History of Present Illness Date Seen by Provider: Jan 02, 2019 Time Seen by Provider: 14:21 Initial Comments This patient presents to the emergency room with chest pain that started yesterday morning. She describes the pain as a squeezing sensation that woke her up in the morning. Since then she has had some persistent pressure. It is worse with exertion. She has had some burning sensation as well. A stress test done in November of last year was negative when she was admitted for observation and ACS rule out. She also had EGD performed a year ago demonstrating gastritis and hiatal hernia. Colonoscopy revealed diverticulosis. She reports a history of GERD and hypertension. She saw Dr. Mclaughlin in the hospital when she was admitted for observation last November and she has followed up with Dr. Campbell since then. She reports there is tightness in the jaw and base of her head as well. She is noted to be quite hypertensive. Allergies and Home Medications Allergies Coded Allergies: No Known Drug Allergies (Unverified , 01/02/19) Home Medications Aspirin 81 Mg Tab.chew, 81 MG PO HS, (Reported) Citalopram Hydrobromide 10 Mg Tablet, 10 MG PO DAILY, (Reported) Docusate Sodium 100 Mg Capsule, 100 MG PO BID Prescribed by: YISEL OVIEDO on 01/07/18 1051 Lisinopril 10 Mg Tablet, 10 MG PO DAILY, (Reported) Pantoprazole Sodium 40 Mg Tablet.dr, 40 MG PO DAILY, (Reported) Patient Home Medication List Home Medication List Reviewed: Yes Review of Systems Review of Systems Constitutional: no symptoms reported EENTM: See HPI Respiratory: No Symptoms Reported Cardiovascular: See HPI Gastrointestinal: No Symptoms Reported Genitourinary: No Symptoms Reported Musculoskeletal: no symptoms reported Skin: no symptoms reported Psychiatric/Neurological: No Symptoms Reported Endocrine: No Symptoms Reported Hematologic/Lymphatic: No Symptoms Reported Past Gzvesku-Cfmayf-Tplwwr Hx Patient Social History Alcohol Use: Denies Use Recreational Drug Use: No Smoking Status: Never a Smoker 2nd Hand Smoke Exposure: No Recent Foreign Travel: No Contact w/Someone Who Travel: No Recent Infectious Disease Expo: No Recent Hopitalizations: No Physical Abuse: No Sexual Abuse: No Mistreated: No Fear: No Immunizations Up To Date PED Vaccines UTD: Yes Seasonal Allergies Seasonal Allergies: Yes Past Medical History Surgeries: Yes (TUBAL SX, EGD, breast implants, colonoscopy) Hysterectomy, Tubal Ligation Respiratory: Yes Sleep Apnea Currently Using CPAP: Yes Cardiac: Yes Hypertension, Palpitations Neurological: No Reproductive Disorders: No 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 0.0oz. 104.922876sm; 39.5 BMI Method:Stated General Appearance: No Apparent Distress, WD/WN HEENT: PERRL/EOMI, Normal ENT Inspection Neck: Normal Inspection; No Carotid Bruit, No JVD Respiratory: Chest Non Tender, Lungs Clear, Normal Breath Sounds, No Accessory Muscle Use, No Respiratory Distress Cardiovascular: Regular Rate, Rhythm, No Edema, No Murmur, Normal Peripheral Pulses Gastrointestinal: Normal Bowel Sounds, Non Tender, Soft Extremity: Normal Inspection, Non Tender, No Calf Tenderness, No Pedal Edema Neurologic/Psychiatric: Alert, Oriented x3, No Motor/Sensory Deficits, Normal Mood/Affect, manager fleet II-XII Norm as Tested Skin: Normal Color, Warm/Dry Progress/Results/Core Measures Results/Orders Lab Results Laboratory Tests Test 01/02/19 14:30 01/02/19 16:32 Range/Units White Blood Count 12.2 H 4.3-11.0 10^3/uL Red Blood Count 4.63 4.35-5.85 10^6/uL Hemoglobin 13.4 11.5-16.0 G/DL Hematocrit 41 35-52 % Mean Corpuscular Volume 89 80-99 FL Mean Corpuscular Hemoglobin 29 25-34 PG Mean Corpuscular Hemoglobin Concent 33 32-36 G/DL Red Cell Distribution Width 13.4 10.0-14.5 % Platelet Count 318 130-400 10^3/uL Mean Platelet Volume 10.8 H 7.4-10.4 FL Neutrophils (%) (Auto) 75 42-75 % Lymphocytes (%) (Auto) 18 12-44 % Monocytes (%) (Auto) 5 0-12 % Eosinophils (%) (Auto) 1 0-10 % Basophils (%) (Auto) 1 0-10 % Neutrophils # (Auto) 9.2 H 1.8-7.8 X 10^3 Lymphocytes # (Auto) 2.2 1.0-4.0 X 10^3 Monocytes # (Auto) 0.7 0.0-1.0 X 10^3 Eosinophils # (Auto) 0.1 0.0-0.3 10^3/uL Basophils # (Auto) 0.1 0.0-0.1 10^3/uL Prothrombin Time 13.4 12.2-14.7 SEC INR Comment 1.0 0.8-1.4 Activated Partial Thromboplast Time 33 24-35 SEC Sodium Level 137 135-145 MMOL/L Potassium Level 3.6 3.6-5.0 MMOL/L Chloride Level 101 98-107 MMOL/L Carbon Dioxide Level 25 21-32 MMOL/L Anion Gap 11 5-14 MMOL/L Blood Urea Nitrogen 13 7-18 MG/DL Creatinine 0.85 0.60-1.30 MG/DL Estimat Glomerular Filtration Rate > 60 BUN/Creatinine Ratio 15 Glucose Level 106 H 70-105 MG/DL Calcium Level 10.1 8.5-10.1 MG/DL Corrected Calcium 8.5-10.1 MG/DL Magnesium Level 2.4 1.8-2.4 MG/DL Total Bilirubin 0.6 0.1-1.0 MG/DL Aspartate Amino Transf (AST/SGOT) 26 5-34 U/L Alanine Aminotransferase (ALT/SGPT) 28 0-55 U/L Alkaline Phosphatase 98 40-136 U/L Myoglobin 29.7 10.0-92.0 NG/ML Troponin I < 0.028 < 0.028 <0.028 NG/ML Total Protein 8.1 6.4-8.2 GM/DL Albumin 4.6 H 3.2-4.5 GM/DL My Orders Orders - EDGARDO HOSKINS MD Cbc With Automated Diff (01/02/19 14:32) Magnesium (01/02/19 14:32) Chest 1 View, Ap/Pa Only (01/02/19 14:32) Cardiac Profile 1 (01/02/19 14:32) Comprehensive Metabolic Panel (01/02/19 14:32) Myoglobin Serum (01/02/19 14:32) Protime With Inr (01/02/19 14:32) Partial Thromboplastin Time (01/02/19 14:32) O2 (01/02/19 14:32) Monitor-Rhythm Ecg Trace Only (01/02/19 14:32) Saline Lock/Iv-Start (01/02/19 14:32) Aspirin Chewable Tablet (Baby Aspirin Ch (01/02/19 14:45) Nitroglycerin 0.4 Mg Btl 25's (Nitrostat (01/02/19 14:45) Aspirin Chewable Tablet (Baby Aspirin Ch (01/02/19 14:36) Troponin I (01/02/19 16:30) Medications Given in ED Current Medications Medications Dose Ordered Sig/Freya Route Start Time Stop Time Status Last Admin Dose Admin Aspirin 324 mg ONCE ONCE PO 01/02/19 14:45 01/02/19 14:46 DC 01/02/19 14:38 324 MG Nitroglycerin 0.4 mg UD PRN SL 01/02/19 14:45 01/02/19 17:30 DC 01/02/19 14:39 0.4 MG Vital Signs/I&O 01/02/19 01/02/19 01/02/19 14:25 15:45 17:28 Temp 99.2 99.2 Pulse 70 54 54 Resp 20 16 16 B/P (MAP) 188/91 (123) 123/65 (84) 123/65 (84) Pulse Ox 97 97 O2 Delivery Room Air Room Air Room Air Blood Pressure Mean: 84 Progress Progress Note : Progress Note Patient had immediate and complete relief of chest pain after nitroglycerin. Aspirin was also administered. Chest pain did not return. Workup was unremarkable. Case was discussed with Dr. Campbell. Given the negative stress test a year ago, he is agreeable to discharge home and follow-up in the clinic if a repeat troponin is negative. Patient was monitored and a repeat troponin was obtained. It was negative. Patient will follow-up in the clinic tomorrow morning. The remaining nitroglycerin tablets were dispensed home with the patient to take if she develops further chest pain associated with hypertension. She was given strict instructions to return to care if pain did not completely resolve immediately after one nitroglycerin. Initial ECG Impression Date: Jan 02, 2019 Initial ECG Impression Time: 14:27 Initial ECG Rate: 58 Initial ECG Rhythm: Normal Sinus Initial ECG Intervals: Normal Initial ECG Impression: Normal Comment Normal sinus rhythm with no ST elevation or depression. No abnormal intervals or axis deviation. Diagnostic Imaging Diagonstic Imaging: Xray Plain Films/CT/US/NM/MRI: chest Comments Chest x-ray viewed by me and report reviewed. See report below: NAME: JORGE FERRO [facility] REC#: [id number] PT STATUS: REG ER : 1965 PHYSICIAN: EDGARDO HOSKINS MD ADMIT DATE: 01/02/19/ER Signed Date of Exam: 01/02/19 CHEST 1 VIEW, AP/PA ONLY INDICATION: Chest pressure. TIME OF EXAM: 3:05 p.m. COMPARISON: Correlation is made with prior study from 11/25/2017. FINDINGS: The heart size is normal. The pulmonary vascularity is unremarkable. The lungs are clear. No infiltrate, effusion or pneumothorax is detected. IMPRESSION: No acute cardiopulmonary process is detected. Dictated by: Dictated on workstation # [id number] Dict: 01/02/19 1511 Trans: 01/02/19 1552 Interpreted by: JEET BEAUCHAMP MD Electronically signed by: JEET BEAUCHAMP MD 01/02/19 1552 Departure Impression Primary Impression: Chest pain Qualified Codes: R07.9 - Chest pain, unspecified Additional Impression: Hypertension Qualified Codes: I10 - Essential (primary) hypertension Disposition: 01 HOME, SELF-CARE Condition: Improved Departure-Patient Inst. Decision time for Depature: 17:10 Referrals: WILLIAM KESSLER DO (PCP/Family) Primary Care Physician Patient Instructions: Chest Pain (DC) Add. Discharge Instructions: You have an appointment at Dr. Campbell's office at 11:20 tomorrow. Continue taking aspirin 81 mg daily. Continue taking all of your previously prescribed medications. If you have recurrence of chest pain related to high blood pressure again at home, you may take one nitroglycerin. If you do not have immediate relief of pain, please return to the emergency room immediately. If you have chest pain in the absence of elevated blood pressure, return to the ER promptly. Return to care if you have any other significant problems or concerns. All discharge instructions reviewed with patient and/or family. Voiced understanding. Copy Copies To 1: INÉS CAMPBELL MD Copies To 2: WILLIAM KESSLER JOSHUA T MD Jan 02, 2019 16:21
--- NOTE | 2019-01-02 16:36 | NUR ---
LAB DRAWN FOR REPEAT TROPONIN. PATIENT RESTING QUIETLY IN ROOM. VITAL SIGNS STABLE. FAMILY MEMBERS AT BEDSIDE. PATIENT DENIES ANY NEEDS AT THIS TIME.
[2019-01-02 17:28] VITALS: BP 123/65
== END 2019-01-02 17:28 | disposition home or self-care (01) ==
LOC: EDUNIT# 14:20 → ER 14:21
DX: R07.89 Other chest pain (principal); I10 Essential (primary) hypertension; K21.9 Gastro-esophageal reflux disease without esophagitis; G47.30 Sleep apnea, unspecified; Z79.82 Long term (current) use of aspirin; Z87.19 Personal history of other diseases of the digestive system; Z90.710 Acquired absence of both cervix and uterus; Z98.51 Tubal ligation status; Z98.890 Other specified postprocedural states; Z98.82 Breast implant status
CPT/HCPCS: 36415; 71045; 80053; 83735; 83874; 84484; 85025; 85610; 85730; 93005; 93041

== ENCOUNTER → 2019-01-04 | Outpatient (CLI) | payer BC ==
[~2019-01-04] VITALS: Ht 162.6 cm; Wt 106.1 kg
[~2019-01-04] MED LIST changes: +CATHETER FLUSH 10 ML SYR IV PRN
--- NOTE | 2019-01-04 16:02 | STRESS TEST ---
DATE OF SERVICE: 01/04/2019 EXERCISE MYOVIEW STRESS TEST Baseline heart rate is 54, baseline blood pressure 191/86. Baseline EKG is sinus rhythm with no ischemic changes. In summary, the patient was injected with 10.13 mCi of technetium-99 Myoview and the resting images were obtained. The patient then started exercising and was able to exercise for a total of 3 minutes on standard Nilesh protocol. With peak exercise level, EKG was showing [address] depression in lead 2, [address] depression in lead 3 and aVF, V4, V5. During recovery, heart rate and blood pressure returned to baseline. EKG returned to baseline. The resting and stress images were reviewed and compared in the short axis, horizontal long axis, and vertical long axis views. Review of the images show significant breast attenuation affecting the quality of the images, actually the stress images showed decreased uptake involving the mid to apical anterior wall and anterolateral wall with the attenuation correction protocol showing the stress images better than the rest images. Her SSS is 9, SDS 7, and TID value 1.03. On the gated images, the left ventricle appeared to be normal size with normal contractility. Calculated ejection fraction is 55%. CONCLUSION: 1. Poor exercise tolerance, a total of 3 minutes on standard Nilesh protocol, total of 4.6 METs, achieving 89% of maximum expected heart rate. 2. Severe hypertensive response to exercise returned to baseline during recovery. Peak blood pressure is 215/100. 3. Nondiagnostic EKG changes with exercise returned to baseline during recovery. 4. Breast attenuation affecting the quality of the images, it is considered nondiagnostic SPECT images due to the significant breast attenuation that affected the anterior wall images. 5. Normal left ventricular size with normal contractility. Calculated ejection fraction is 55%. Job ID: [id number] DocumentID: [id number] Dictated Date: 01/04/2019 15:25:22 Client Success Manager Date: 01/04/2019 16:01:51 Dictated By: INÉS COBURN MD
== END ==
LOC: CARD 10:53
PROVIDERS: ATTEND Internal Medicine Cardiovascular Disease
DX: R07.89 Other chest pain (principal); I10 Essential (primary) hypertension; G47.33 Obstructive sleep apnea (adult) (pediatric); E66.9 Obesity, unspecified; Z68.41 Body mass index [BMI] 40.0-44.9, adult
CPT/HCPCS: 78452; 93017

== ENCOUNTER 2019-01-25 06:48 | Day surgery (SDC) | payer BC ==
[~2019-01-25] VITALS: Ht 162.6 cm; Wt 106.1 kg
[2019-01-25] VITALS (8 sets, daily range): BP systolic 105–145; BP diastolic 49–96
[~2019-01-25 06:48] MED LIST changes: -CATHETER FLUSH 10 ML SYR IV PRN
--- OUTSIDE RECORDS SUMMARY | 2019-01-25 06:51 | XMS REPORT | Clinical Summary ---
Author Author [facility] Organization [facility] Address Unknown Phone Unavailable Care Team Providers Care Resident Medical Officer Name Role Phone Mario Tsang MD PCP Mario Tsang MD 100 Source Comments Some departments are not documenting in the electronic medical record. If you do not see the information that you expected, contact Release of Information in the Health Information Management department at [phone] for further assistance in locating additional records.[facility] Allergies No Known Allergies Medications End Date Status Medication Sig Dispensed Refills Start Date Active escitalopram oxalate Take 10 mg by 0 (LEXAPRO) 10 mg tablet mouth daily. Active pantoprazole DR Take 40 mg by 0 (PROTONIX) 40 mg tablet mouth daily. Active aspirin EC 81 mg tablet Take 81 mg by 0 mouth daily. Take with food. Active PSYLLIUM SEED (WITH Take by 0 SUGAR) (FIBER SUPPLEMENT mouth. PO) Active lisinopril (PRINIVIL, Take 2.5 mg 0 ZESTRIL) 2.5 mg tablet by mouth daily. Active Problems Problem Noted Date Essential hypertension 05/03/2018 Healthcare maintenance 01/15/2018 Family history of pancreatic cancer 01/15/2018 RUQ discomfort 01/15/2018 Hyponatremia 01/15/2018 Anxiety 01/15/2018 ROSSI (obstructive sleep apnea) 01/15/2018 Hepatic steatosis 01/15/2018 Family History Medical History Relation Name Comments Arthritis-rheumatoid Brother Cancer Brother Colon Rashes/Skin Problems Brother Hypertension Father Rashes/Skin Problems Maternal Grandmother Arthritis-rheumatoid Mother Diabetes Mother Cancer Paternal Grandfather Cancer Sister Pancreatic, Breast Relation Name Status Comments Brother Father Maternal Grandmother Mother Paternal Grandfather Sister Social History Date Tobacco Use Types Packs/Day Years Used Never Smoker Smokeless Tobacco: Never Used Alcohol Use Drinks/Week oz/Week Comments Yes 1 Standard 0.6 drinks or equivalent Sex Assigned at Date Recorded Not on file Industry Job Start Date Occupation Not on file Not on file Not on file Travel End Travel History Travel Start No recent travel history available. Last Filed Vital Signs Time Taken Vital Sign Reading 06/01/2018 2:22 PM CDT Blood Pressure 156/84 06/01/2018 2:22 PM CDT Pulse 53 06/01/2018 2:22 PM CDT Temperature 36.9 C (98.5 F) 06/01/2018 2:22 PM CDT Respiratory Rate 16 05/03/2018 7:47 AM CDT Oxygen Saturation 98% - Inhaled Oxygen - Concentration 06/01/2018 2:22 PM CDT Weight 107 kg (236 lb) 06/01/2018 2:22 PM CDT Height 162.6 cm (5' 4") 06/01/2018 2:22 PM CDT Body Mass Index 40.51 Plan of Treatment Health Maintenance Due Date Last Done Comments HIV SCREENING 1981 DTAP/TDAP VACCINES (1 - 1984 Tdap) SHINGLES RECOMBINANT 2016 VACCINE (1 of 2) BREAST CANCER SCREENING 10/15/2017 10/15/2016 INFLUENZA VACCINE 06/01/2018 PHYSICAL (COMPREHENSIVE) 05/03/2019 05/03/2018 EXAM COLORECTAL CANCER 01/08/2028 01/07/2018 (Previously completed) SCREENING Results Not on filefrom Last 3 Months Insurance Type Payer Benefit Subscriber ID Effective Phone Address Plan / Dates Group PPO [place] xxxxxxxxxxxx 2017- PREF CARE Present BLUE P[place] xxxxxxxxxxxxxxx 2016-P OUT OF resent STATE Advance Directives Patient has advance care planning documents on file. For more information, please contact: [facility] [phone] [place] [address]
--- OUTSIDE RECORDS SUMMARY | 2019-01-25 06:52 | XMS REPORT | Continuity of Care Document ---
Author Author [facility] Organization [facility] Address Unknown Phone Unavailable Allergies Active Description Code Type Severity Reaction Onset Reported/Identified Relationship to Patient Clinical Status Yes No Known Drug Allergies [id number] Drug Allergy Unknown N/A 01/02/2019 Medications There is no data. Problems Date [...] S Ot R05 COUGH 06/12/2016 YULY BHATT BUTTON BRADDER Ot R05 COUGH 06/12/2016 ORENDER DO, WILLIAM [...] SLEEP APNEA (ADULT) (PEDIATR 02/16/2017 YULY BHATT BUTTON BRADDER Ot R05 COUGH 11/18/2017 ORENDER DO, WILLIAM S Ot R05 COUGH 11/18/2017 YULY BHATT BUTTON BRADDER Ot R05 COUGH 11/18/2017 ORENDER DO, WILLIAM S Ot R05 COUGH 11/22/2017 JACKLYN MARTINEZ Ot V43.82 BREAST REPLACEMENT STATUS 11/22/2017 JACKLYN MARTINEZ Ot V76.12 OTH SCREEN MAMMO-MALIGN NEOPLASM OF SOY 11/22/2017 ORENDER DO, WILLIAM S Ot R05 COUGH 11/22/2017 YULY BHATT BUTTON BRADDER Ot R05 COUGH 11/22/2017 ORENDER DO, WILLIAM S Ot R05 COUGH 11/23/2017 ORENDER DO, WILLIAM S Ot I10 ESSENTIAL (PRIMARY) HYPERTENSION 11/23/2017 ORENDER DO, WILLIAM S Ot R07.9 CHEST PAIN, UNSPECIFIED 11/24/2017 JACKLYN MARTINEZ Ot V43.82 BREAST REPLACEMENT STATUS 11/24/2017 JACKLYN MARTINEZ Ot V76.12 OTH SCREEN MAMMO-MALIGN NEOPLASM OF SOY 11/24/2017 ORENDER DO, WILLIAM S Ot R05 COUGH 11/24/2017 YULY BHATT BUTTON BRADDER Ot R05 COUGH 11/24/2017 ORENDER DO, WILLIAM [...] S Ot R05 COUGH 12/10/2017 YULY BHATT BUTTON BRADDER Ot R05 COUGH 12/10/2017 ORENDER DO, WILLIAM [...] S Ot R05 COUGH 12/20/2017 YULY BHATT BUTTON BRADDER Ot R05 COUGH 12/20/2017 ORENDER DO, WILLIAM S Ot R05 COUGH 12/20/2017 ORENDER DO, WILLIAM S Ot I10 ESSENTIAL (PRIMARY) HYPERTENSION 12/20/2017 ORENDER DO, WILLIAM S Ot R07.9 CHEST PAIN, UNSPECIFIED 12/20/2017 WILLIAM MARQUEZ DO Ot I49.9 CARDIAC ARRHYTHMIA, UNSPECIFIED 12/20/2017 WILLIAM MARQUEZ DO Ot K76.0 FATTY (CHANGE OF) LIVER, NOT ELSEWHERE C 12/20/2017 WILLIAM MARQUEZ DO Ot H53.9 UNSPECIFIED VISUAL DISTURBANCE 12/29/2017 WILLIAM MARQUEZ DO Ot H53.9 UNSPECIFIED VISUAL DISTURBANCE 01/03/2018 YISEL OVIEDO DO Ot R10.11 RIGHT UPPER QUADRANT PAIN 01/03/2018 YISEL OVIEDO DO Ot Z01.818 ENCOUNTER FOR OTHER PREPROCEDURAL EXAMIN 01/04/2018 YISEL OVIEDO DO Ot R10.11 RIGHT UPPER QUADRANT PAIN 01/04/2018 YISEL OVIEDO DO Ot Z53.8 PROCEDURE AND TREATMENT NOT CARRIED OUT 01/05/2018 YISEL OVIEDO DO Ot R10.11 RIGHT UPPER QUADRANT PAIN 01/05/2018 YISEL OVIEDO DO Ot Z53.8 PROCEDURE AND TREATMENT NOT CARRIED OUT 01/05/2018 YISEL OVIEDO DO Ot R10.11 RIGHT UPPER QUADRANT PAIN 01/05/2018 YISEL OVIEDO DO Ot Z53.8 PROCEDURE AND TREATMENT NOT CARRIED OUT 01/07/2018 YISEL OVIEDO DO Ot E66.9 OBESITY, UNSPECIFIED 01/07/2018 YISEL OVIEDO DO Ot G47.33 OBSTRUCTIVE SLEEP APNEA (ADULT) (PEDIATR 01/07/2018 YISEL OVIEDO DO Ot I10 ESSENTIAL (PRIMARY) HYPERTENSION 01/07/2018 YISEL OVIEDO DO Ot K21.9 GASTRO-ESOPHAGEAL REFLUX DISEASE WITHOUT 01/07/2018 YISEL OVIEDO DO Ot K29.70 GASTRITIS, UNSPECIFIED, WITHOUT BLEEDING 01/07/2018 YISEL OVIEDO DO Ot K44.9 DIAPHRAGMATIC HERNIA WITHOUT OBSTRUCTION 01/07/2018 YISEL OVIEDO DO Ot K52.9 NONINFECTIVE GASTROENTERITIS AND COLITIS 01/07/2018 YISEL OVIEDO DO Ot K57.30 DVRTCLOS OF LG INT W/O PERFORATION OR AB 01/07/2018 YISEL OVIEDO DO Ot K60.2 ANAL FISSURE, UNSPECIFIED 01/07/2018 YISEL OVIEDO DO Ot Z68.39 BODY MASS INDEX (BMI) 39.0-39.9, ADULT 01/07/2018 YISEL OVIEDO DO Ot Z79.82 CARE HOME (CURRENT) USE OF ASPIRIN 01/07/2018 YISEL OVIEDO DO Ot Z79.899 OTHER CARE HOME (CURRENT) DRUG THERAPY 01/07/2018 YISEL OVIEDO DO Ot Z80.0 FAMILY HISTORY OF MALIGNANT NEOPLASM OF 01/10/2018 JERSON MARQUEZ DOELODIA Mendenhall Ot R10.11 RIGHT UPPER QUADRANT PAIN 01/11/2018 YISEL OVIEDO DO Ot E66.9 OBESITY, UNSPECIFIED 01/11/2018 YISEL OVIEDO DO Ot G47.33 OBSTRUCTIVE SLEEP APNEA (ADULT) (PEDIATR 01/11/2018 YISEL OVIEDO DO Ot I10 ESSENTIAL (PRIMARY) HYPERTENSION 01/11/2018 YISEL OVIEDO DO Ot K21.9 GASTRO-ESOPHAGEAL REFLUX DISEASE WITHOUT 01/11/2018 YISEL OVIEDO DO Ot K29.70 GASTRITIS, UNSPECIFIED, WITHOUT BLEEDING 01/11/2018 YISEL OVIEDO DO Ot K44.9 DIAPHRAGMATIC HERNIA WITHOUT OBSTRUCTION 01/11/2018 YISEL OVIEDO DO Ot K52.9 NONINFECTIVE GASTROENTERITIS AND COLITIS 01/11/2018 YISEL OVIEDO DO Ot K57.30 DVRTCLOS OF LG INT W/O PERFORATION OR AB 01/11/2018 YISEL OVIEDO DO Ot K60.2 ANAL FISSURE, UNSPECIFIED 01/11/2018 YISEL OVIEDO DO Ot Z68.39 BODY MASS INDEX (BMI) 39.0-39.9, ADULT 01/11/2018 YISEL OVIEDO DO Ot Z79.82 CARE HOME (CURRENT) USE OF ASPIRIN 01/11/2018 YISEL OVIEDO DO Ot Z79.899 OTHER SHEET LAYER (CURRENT) DRUG THERAPY 01/11/2018 YISEL OVIEDO DO Ot Z80.0 FAMILY HISTORY OF MALIGNANT NEOPLASM OF 01/18/2018 YISEL OVIEDO DO Ot E66.9 OBESITY, UNSPECIFIED 01/18/2018 YISEL OVIEDO DO Ot G47.33 OBSTRUCTIVE SLEEP APNEA (ADULT) (PEDIATR 01/18/2018 YISEL OVIEDO DO Ot I10 ESSENTIAL (PRIMARY) HYPERTENSION 01/18/2018 YISEL OVIEDO DO Ot K21.9 GASTRO-ESOPHAGEAL REFLUX DISEASE WITHOUT 01/18/2018 YISEL OVIEDO DO Ot K29.70 GASTRITIS, UNSPECIFIED, WITHOUT BLEEDING 01/18/2018 OVIEDO YISEL GARCIA Ot K44.9 DIAPHRAGMATIC HERNIA WITHOUT OBSTRUCTION 01/18/2018 OVIEDO YISEL GARCIA Ot K52.9 NONINFECTIVE GASTROENTERITIS AND COLITIS 01/18/2018 OVIEDOYISEL LUTZ DO, Ot K57.30 DVRTCLOS OF LG INT W/O PERFORATION OR AB 01/18/2018 YISEL OVIEDO DO Ot K60.2 ANAL FISSURE, UNSPECIFIED 01/18/2018 YISEL OVIEDO DO Ot Z68.39 BODY MASS INDEX (BMI) 39.0-39.9, ADULT 01/18/2018 YISEL OVIEDO DO Ot Z79.82 CARE HOME (CURRENT) USE OF ASPIRIN 01/18/2018 YISEL OVIEDO DO Ot Z79.899 OTHER CARE HOME (CURRENT) DRUG THERAPY 01/18/2018 OVIEDO YISEL GARCIA Ot Z80.0 FAMILY HISTORY OF MALIGNANT NEOPLASM OF 01/04/2019 EDGARDO HOSKINS MD, Ot G47.30 SLEEP APNEA, UNSPECIFIED 01/04/2019 EDGARDO HOSKINS MD Ot I10 ESSENTIAL (PRIMARY) HYPERTENSION 01/04/2019 EDGARDO HOSKINS MD, Ot K21.9 GASTRO-ESOPHAGEAL REFLUX DISEASE WITHOUT 01/04/2019 EDGARDO HOSKINS MD Ot R07.89 OTHER CHEST PAIN 01/04/2019 EDGARDO HOSKINS MD, Ot Z79.82 CARE HOME (CURRENT) USE OF ASPIRIN 01/04/2019 EDGARDO HOSKINS MD, Ot Z87.19 PERSONAL HISTORY OF OTHER DISEASES OF TH 01/04/2019 EDGARDO HOSKINS MD, Ot Z90.710 ACQUIRED ABSENCE OF BOTH CERVIX AND UTER 01/04/2019 EDGARDO HOSKINS MD, Ot Z98.51 TUBAL LIGATION STATUS 01/04/2019 EDGARDO HOSKINS MD, Ot Z98.82 BREAST IMPLANT STATUS 01/04/2019 EDGARDO HOSKINS MD Ot Z98.890 OTHER SPECIFIED POSTPROCEDURAL STATES 01/18/2019 INÉS COBURN MD, Ot E66.9 OBESITY, UNSPECIFIED 01/18/2019 INÉS COBURN MD, Ot G47.33 OBSTRUCTIVE SLEEP APNEA (ADULT) (PEDIATR 01/18/2019 INÉS COBURN MD, Ot I10 ESSENTIAL (PRIMARY) HYPERTENSION 01/18/2019 INÉS COBURN MD, Ot R07.89 OTHER CHEST PAIN 01/18/2019 INÉS COBURN MD, Ot Z68.41 BODY MASS INDEX (BMI) 40.0-44.9, ADULT Procedures There is no data. Results Test [...] human chorionic gonadotropin (hCG) measurement NEGATIVE NEGATIVE Complete blood count (CBC) with automated white blood cell (WBC) differential - 01/02/19 14:30 Blood leukocytes automated count (number/volume) 12.2 10*3/uL 4.3-11.0 Blood erythrocytes automated count (number/volume) 4.63 10*6/uL 4.35-5.85 Venous blood hemoglobin measurement (mass/volume) 13.4 g/dL 11.5-16.0 Blood hematocrit (volume fraction) 41 % 35-52 Automated erythrocyte mean corpuscular volume 89 [foz_us] 80-99 Automated erythrocyte mean corpuscular hemoglobin (mass per erythrocyte) 29 pg 25-34 Automated erythrocyte mean corpuscular hemoglobin concentration measurement ( mass/volume) 33 g/dL 32-36 Automated erythrocyte distribution width ratio 13.4 % 10.0-14.5 Automated blood platelet count (count/volume) 318 10*3/uL 130-400 Automated blood platelet mean volume measurement 10.8 [foz_us] 7.4-10.4 Automated blood neutrophils/100 leukocytes 75 % 42-75 Automated blood lymphocytes/100 leukocytes 18 % 12-44 Blood monocytes/100 leukocytes 5 % 0-12 Automated blood eosinophils/100 leukocytes 1 % 0-10 Automated blood basophils/100 leukocytes 1 % 0-10 Blood neutrophils automated count (number/volume) 9.2 10*3 1.8-7.8 Blood lymphocytes automated count (number/volume) 2.2 10*3 1.0-4.0 Blood monocytes automated count (number/volume) 0.7 10*3 0.0-1.0 Automated eosinophil count 0.1 10*3/uL 0.0-0.3 Automated blood basophil count (count/volume) 0.1 10*3/uL 0.0-0.1 PT panel in platelet poor plasma by coagulation assay - 01/02/19 14:30 Prothrombin time (PT) in platelet poor plasma by coagulation assay 13.4 s 12.2-14.7 INR in platelet poor plasma or blood by coagulation assay 1.0 0.8-1.4 Activated partial thromboplastin time (aPTT) in platelet poor plasma bycoagulation assay - 01/02/19 14:30 Activated partial thromboplastin time (aPTT) in platelet poor plasma bycoagulation assay 33 s 24-35 Comprehensive metabolic panel - 01/02/19 14:30 Serum or plasma sodium measurement (moles/volume) 137 mmol/L 135-145 Serum or plasma potassium measurement (moles/volume) 3.6 mmol/L 3.6-5.0 Serum or plasma chloride measurement (moles/volume) 101 mmol/L 98-107 Carbon dioxide 25 mmol/L 21-32 Serum or plasma anion gap determination (moles/volume) 11 mmol/L 5-14 Serum or plasma urea nitrogen measurement (mass/volume) 13 mg/dL 7-18 Serum or plasma creatinine measurement (mass/volume) 0.85 mg/dL 0.60-1.30 Serum or plasma urea nitrogen/creatinine mass ratio 15 NRG Serum or plasma creatinine measurement with calculation of estimated glomerular filtration rate > NRG Serum or plasma glucose measurement (mass/volume) 106 mg/dL 70-105 Serum or plasma calcium measurement (mass/volume) 10.1 mg/dL 8.5-10.1 Serum or plasma total bilirubin measurement (mass/volume) 0.6 mg/dL 0.1-1.0 Serum or plasma alkaline phosphatase measurement (enzymatic activity/volume) 98 U/L 40-136 Serum or plasma aspartate aminotransferase measurement (enzymatic activity/ volume) 26 U/L 5-34 Serum or plasma alanine aminotransferase measurement (enzymatic activity/volume ) 28 U/L 0-55 Serum or plasma protein measurement (mass/volume) 8.1 g/dL 6.4-8.2 Serum or plasma albumin measurement (mass/volume) 4.6 g/dL 3.2-4.5 Magnesium - 01/02/19 14:30 Magnesium 2.4 mg/dL 1.8-2.4 Serum or plasma troponin i.cardiac measurement (mass/volume) - 01/02/19 14:30 Serum or plasma troponin i.cardiac measurement (mass/volume) < ng/ mL <0.028 Myoglobin, serum - 01/02/19 14:30 Myoglobin, serum 29.7 ng/mL 10.0-92.0 Serum or plasma troponin i.cardiac measurement (mass/volume) - 01/02/19 16:32 Serum or plasma troponin i.cardiac measurement (mass/volume) < ng/ mL <0.028 Encounters ACCT No. Visit Date/Time Discharge Status Pt. Type Provider Facility Loc./Unit Complaint [id number] 01/04/2019 10:53:00 01/04/2019 23:59:59 CLS Outpatient INÉS COBURN MD [facility] CARD ANTERIOR CHEST WALL PAIN [id number] 01/02/2019 14:21:00 01/02/2019 17:28:00 DIS Outpatient AIDEE CONRAD, EDGARDO Samaniego [facility] ER CHEST PRESSURE [id number] 01/07/2018 07:58:00 01/07/2018 11:05:00 DIS Outpatient YISEL OVIEDO DO [facility] ENDO RIGHT UPPER ABD PAIN/ BLOOD IN STOOLS [id number] 01/04/2018 12:57:00 01/04/2018 14:20:00 DIS Outpatient YISEL OVIEDO DO [facility] ENDO RIGHT UPPER ABD PAIN [id number] 12/30/2017 05:33:00 12/30/2017 13:11:00 DIS Outpatient YISEL OVIEDO DO [facility] PREOP EGD [id number] 12/20/2017 09:50:00 12/20/2017 23:59:59 CLS Outpatient ALISIANDER DO, WILLIAM S [facility] CARD RUQ PAIN [id number] 12/15/2017 10:30:00 12/15/2017 23:59:59 CLS Preadmit ORENDER DO, WILLIAM S [facility] CARD CHEST PAIN [id number] 12/13/2017 07:24:00 12/13/2017 23:59:59 CLS Outpatient ORENDER DO, WILLIAM S [facility] RAD VISION CHANGES, HEADACHE [id number] 12/03/2017 06:51:00 12/03/2017 23:59:59 CLS Outpatient ORENDER DO, WILLIAM S [facility] RAD RUQ/EPIGASTRIC PAIN [id number] 11/29/2017 11:04:00 11/29/2017 23:59:59 CLS Outpatient ALISIANDER DO, WILLIAM S [facility] CARD I49.9 [id number] 11/25/2017 21:40:00 11/26/2017 14:11:00 DIS Inpatient ALISIANDER DO, WILLIAM S [facility] 4TH CHEST PAIN [id number] 11/22/2017 10:23:00 11/22/2017 23:59:59 CLS Outpatient ORENDER DO, WILLIAM S [facility] CARD CHEST PAIN [id number] 10/01/2016 19:40:00 10/02/2016 07:00:00 DIS Outpatient ORENDER DO, WILLIAM S [facility] SLEEP ROSSI [id number] 06/01/2016 15:31:00 06/01/2016 23:59:59 CLS Outpatient ALISIANDER DO, WILLIAM S [facility] RAD R05 [id number] 05/27/2016 12:33:00 05/27/2016 23:59:59 CLS Outpatient YULY BHATT APRN [facility] RT COUGH [id number] 05/12/2016 11:30:00 05/12/2016 23:59:59 CLS Outpatient WILLIAM MARQUEZ DO [facility] RAD COUGH [id number] 07/30/2014 20:03:00 07/30/2014 21:42:00 DIS Emergency PETEY ARENAS APRN [facility] ER FEVER,NAUSEA [id number] 10/30/2013 09:13:00 10/30/2013 23:59:59 CLS Outpatient JACKLYN MARTINEZ [facility] RAD SCREENING [id number] 01/25/2019 06:48:00 ACT Outpatient INÉS COBURN MD [facility] CATH ABN STRESS TEST [id number] 11/07/2018 10:10:00 11/07/2018 23:59:59 CLS Outpatient JOANNE LAURITA ARNIE [facility] [place] 05/201712/14/2018 11:08:06 12/14/2018 23:59:59 CLS Outpatient William Marquez
[2019-01-25] MEDS ORDERED: LIDOCAINE 1% INJ 20 ML 20 ML VIAL ONE (06:55)
[2019-01-25] MEDS ORDERED: HEParin 1000 UNIT/ML (10ML VIAL) FOR BOLUS ONE (06:55)
[2019-01-25] MEDS ORDERED: NS IV 1000 ML 3,000 ML ONE (06:55)
[2019-01-25] MEDS ORDERED: NS IV 1000 ML 1,000 ML IV SCH ×2 (07:00→09:38)
[2019-01-25 07:20] LABS: HEMOGLOBIN 13.5 G/DL (11.5-16.0); MEAN PLATELET VOLUME 10.9 FL (7.4-10.4); RED CELL DISTRIBUTION WIDTH 13.7 % (10.0-14.5); WHITE BLOOD COUNT 7.7 10^3/uL (4.3-11.0)
[2019-01-25 07:22] LABS: BILIRUBIN,URINE NEGATIVE (NEGATIVE); CLARITY,URINE CLEAR; COLOR,URINE YELLOW; GLUCOSE, URINE (UA) NEGATIVE (NEGATIVE); KETONES,URINE NEGATIVE (NEGATIVE); LEUKOCYTE ESTERASE ,URINE 2+ (NEGATIVE); NITRITE,URINE NEGATIVE (NEGATIVE); PH,URINE 5 (5-9); PROTEIN,URINE NEGATIVE (NEGATIVE); UROBILINOGEN,URINE NORMAL (NORMAL)
[2019-01-25 07:30] LABS: BACTERIA,URINE MODERATE /HPF
[2019-01-25 07:31] LABS: PROTHROMBIN TIME PATIENT 13.6 SEC (12.2-14.7)
[2019-01-25] MEDS ORDERED: MULT-642 PO (07:35)
[2019-01-25 07:38] LABS: ALANINE AMINOTRANSFERASE 26 U/L (0-55); ALBUMIN 4.4 GM/DL (3.2-4.5); ALKALINE PHOSPHATASE 93 U/L (40-136); BILIRUBIN,TOTAL 0.6 MG/DL (0.1-1.0); BUN/CREATININE RATIO 15; CALCIUM 9.5 MG/DL (8.5-10.1); CARBON DIOXIDE 25 MMOL/L (21-32); CHLORIDE 105 MMOL/L (98-107); CHOLESTEROL 213 MG/DL (< 200); CREATININE SERUM 0.85 MG/DL (0.60-1.30); GFR ESTIMATED > 60; GLUCOSE 107 MG/DL (70-105); HDL CHOLESTEROL 51 MG/DL (40-60); POTASSIUM 3.8 MMOL/L (3.6-5.0); SODIUM 141 MMOL/L (135-145); TOTAL PROTEIN 7.5 GM/DL (6.4-8.2); TRIGLYCERIDES 72 MG/DL (<150); VLDL CHOLESTEROL 14 MG/DL (5-40)
--- NOTE | 2019-01-25 07:49 | Diagnostic Imaging Report ---
INDICATION: Abnormal stress test, chest pain, hypertension. COMPARISON STUDY: Chest from January 02. FINDINGS: Portable upright view of the chest demonstrate the heart size remaining upper normal. Lungs are clear. The vascularity is normal. There are no pleural effusions. IMPRESSION: Negative portable chest. Dictated by: Dictated on workstation # [id number]
[2019-01-25] MEDS ORDERED: FLU QUADRIvalent (5+ YOA) 2018-2019 (AFLURIA) 0.5 ML IM ONE (08:30)
[2019-01-25] MEDS ORDERED: fentaNYL INJECTION 100 MCG/2 ML AMP ONE (08:59)
[2019-01-25] MEDS ORDERED: MIDAZOLAM 5 MG/5 ML (VERSED) VIAL ONE (08:59)
--- NOTE | 2019-01-25 09:18 | Cardiac Procedure Note-CS/ASA ---
Pre-Procedure Note Pre-Op Procedure Note H&P Reviewed The H&P was reviewed, patient examined and no changes noted. Date H&P Reviewed: Jan 25, 2019 Time H&P Reviewed: 09:18 Conscious Sedation Pre-Proced Time 09:18 ASA Score 3 For ASA 3 and 4: Consider anesthesia and medical clearance. Also, for patients with a history of failed moderate sedation consider anesthesia. Airway Lungs Heart ASA score ASA 1: a normal healthy patient ASA 2: a patient with a mild systemic disease (mid diabetes, controlled hypertension, obesity x ASA 3: a patient with a severe systemic disease that limits activity (angina , COPD, prior Myocardial infarction) ASA 4: a patient with an incapacitating disease that is a constant threat to life (CHF, renal failure) ASA 5: a moribund patient not expected to survive 24 hrs. (ruptured aneurysm) ASA 6: a declared brain- patient whose organs are being harvested. For emergent operations, add the letter E after the classification Mallampati Classification Grade 3 Sedation Plan Analgesia, Amnesia, Plan communicated to team members, Discussed options with patient/fam, Discussed risks with patient/fam The patient is an appropriate candidate to undergo the planned procedure, sedation, and anesthesia. The patient immediately re-assessed prior to indication. INÉS COBURN MD Jan 25, 2019 09:18
[2019-01-25] MEDS ORDERED: VERAPAMIL 5 MG/2 ML (CALAN) VIAL IV ONE (09:23)
[2019-01-25] MEDS ORDERED: NITRO DRIP 25000 MCG/D5W 250 ML IV ONE (09:23)
--- NOTE | 2019-01-25 09:41 | Cardiac Cath Report ---
Cardiac Cath Report Physician (s)/Women'S Ministry Director (s) Physician INÉS COBURN MD Pre-Procedure Diagnosis Pre-Procedure Diagnosis: chest pain, coronary artery disease Post-Procedure Note Procedure Start Date: Jan 25, 2019 Name of Procedure: left heart catheterization Findings/Procedure Note PROCEDURE NOTE: After explaining the procedure to the patient, all pros and cons were explained , all questions were answered. The patient signed the consent and then she was placed on the cardiac catheterization laboratory. Groin was prepped SL fashion local anesthesia was used. Sheath placed in the right radial artery. Harjinder right and left catheter were used to access the coronary system. Pigtail was used to access the left ventricular cavity. Left ventriculogram was not done, pressure was measured At the end of the procedure the sheath was removed. Closure device with vascular band was used FINDINGS: Hemodynamics LV 115/19, end-diastolic pressure of 19 Aorta 123/69 mean of 93 ANATOMY: Left Main is free of obstructive disease Left Anterior Descending is tortuous with mild disease nonobstructive disease Left Circumflex has mild disease nonobstructive disease Right Coronory Artery is dominant with mild disease nonobstructive disease LV Gram was not done, pressure was measured CONCLUSION: 1. Mild coronary artery disease nonobstructive disease 2. Normal left ventricular end-diastolic pressure DISCUSSION AND RECOMMENDATION: Medical therapy is recommended no intervention is warranted Anesthesia Type: Conscious Sedation Estimated blood loss (mL): 5 ml Contrast Amount: 38 ml Total Radiation Dose: 302 mGy Post-Procedure Diagnosis Post-operative diagnosis: Chest pain, noncardiac Coronary artery disease Hypertension Hyperlipidemia INÉS COBURN MD Jan 25, 2019 09:41
[2019-01-25] MEDS ORDERED: ATOR10TA PO (09:42)
--- NOTE | 2019-01-25 09:43 | Discharge Inst-Post CATH ---
Discharge Inst-CATH/EP Post Cardiac Cath/EP D/C Inst Follow Up/Plan Appointment with Dr. COBURN's office in 4 weeks CARDIAC CATH DISCHARGE INSTRUCTIONS *Hold Metformin for 48 hours post heart cath. ACTIVITY * Go Home directly and rest. * Limit activity of the leg (or wrist if it was used) for 7 days including aerobics, swimming, jogging, bicycling, etc. * Restrict stair-climbing for 7 days if possible, if not, climb up with your non -cath leg, then bring together on the same step. * Avoid lifting, pushing, pulling or excessive movement of the affected extremity for 7 days. * Customary sexual activity may be resumed after 2 days-use caution not to use a position that strains or causes pain to the affected extremity. * No driving for 24 hours. * NO SMOKING. * Avoid straining for bowel movements for 7 days. * Gentle walking on level ground is allowed. * Returning to work will depend on the type of procedure and the results. Your doctor will discuss this with you. CALL YOUR DOCTOR FOR ANY OF THE FOLLOWING: *If bleeding from the puncture site occurs- Apply gentle pressure to site with clean cloth and call your doctor or EMS. * If a knot or lump forms under the skin, increases in size, or causes pain. * If bruising appears to be worsening or moving further down your leg instead of disappearing. * Temperature above 101 F. CARE OF YOUR GROIN INCISION; * Bruising or purple discoloration of the skin near the puncture site is common. * You may shower only, no bathtub bathing for 5 days. Be careful to avoid slipping as your leg may feel stiff. * If a closure device was used on your femoral artery, please see the attached guide regarding care of the device and your leg. * Leave the dressing on, until removed by office staff. CARE OF YOUR WRIST INCISION; * Bruising or purple discoloration of the skin near the puncture site is common. * You may shower. * DO NOT submerge wrist. * Leave dressing on, until removed by office staff.. INÉS COBURN MD Jan 25, 2019 09:43
== END 2019-01-25 12:10 | disposition home or self-care (01) ==
LOC: CATH 06:48 → SDC 10:05 → CATH 12:10
PROVIDERS: ATTEND Internal Medicine Cardiovascular Disease
DX: R07.89 Other chest pain (principal); I25.10 Atherosclerotic heart disease of native coronary artery without angina pectoris; I10 Essential (primary) hypertension; E78.5 Hyperlipidemia, unspecified; G47.33 Obstructive sleep apnea (adult) (pediatric); I49.5 Sick sinus syndrome; R00.1 Bradycardia, unspecified; K76.0 Fatty (change of) liver, not elsewhere classified; M54.9 Dorsalgia, unspecified; F41.9 Anxiety disorder, unspecified; Z80.3 Family history of malignant neoplasm of breast; Z80.0 Family history of malignant neoplasm of digestive organs; Z79.899 Other long term (current) drug therapy
CPT/HCPCS: 36415; 71045; 80053; 80061; 81000; 85027; 85610; 85730; 87081; 87088; 93458

== ENCOUNTER → 2021-07-01 | Outpatient (REF) ==
[~2021-07-01] MED LIST changes: +ATOR10TA PO; -LISI10TA2 PO; +LISI10TA25 PO; +LISI1TAB29 PO; -LISI1TAB6 PO; +MULT-642 PO; -PANT40TA3 PO; +PANT40TA52 PO
--- NOTE | 2021-07-01 16:05 | Diagnostic Imaging Report ---
INDICATION: Fall with left knee injury and pain. AP, oblique and lateral views of left knee reveal moderate narrowing of the medial knee joint compartment with mild to moderate marginal spurring. No acute fracture is identified. There is no evidence of hemarthrosis. IMPRESSION: Medial compartment degenerative osteoarthritis without acute left knee abnormality detected. Dictated by: Dictated on workstation # [id number]
--- NOTE | 2021-07-01 16:07 | Diagnostic Imaging Report ---
INDICATION: Left ankle injury and pain. AP, oblique, and lateral views of left ankle are obtained. FINDINGS: Posterior and plantar calcaneal spurring is noted. No acute fracture or dislocation is identified. No abnormal lytic or sclerotic focus is seen, and there is no radiopaque foreign body. IMPRESSION: No acute abnormality. Dictated by: Dictated on workstation # [id number]
--- NOTE | 2021-07-01 16:09 | Diagnostic Imaging Report ---
INDICATION: Fall with left foot pain. AP, oblique, and lateral views of the left foot are obtained. FINDINGS: There is posterior and plantar calcaneal spurring with mild sclerosis and marginal spurring about the first tarsometatarsal joint. No acute fracture or dislocation is identified. No abnormal lytic or sclerotic focus is seen, and there is no radiopaque foreign body. IMPRESSION: No acute abnormality. Dictated by: Dictated on workstation # [id number]
== END | disposition home or self-care (01) ==
LOC: OCC 15:37
PROVIDERS: ATTEND Family Medicine
DX: Z29.8 Encounter for other specified prophylactic measures (principal)
CPT/HCPCS: 73562; 73610; 73630

== ENCOUNTER → 2021-07-17 | Outpatient (REF) | payer BC ==
--- NOTE | 2021-07-17 13:26 | Diagnostic Imaging Report ---
EXAMINATION: Magnetic resonance imaging of the left knee without intravenous contrast DATE: July 17, 2021. COMPARISON: Left knee radiographs July 01, 2021. INDICATION: 56-year-old female, fall 3 weeks ago. Left knee pain. TECHNIQUE: Multiplanar, multisequence non contrast enhanced MR imaging was accomplished. FINDINGS: MENISCI: There is an oblique tear involving the anterior horn, body, and posterior horn of the medial meniscus. There is no medial meniscal extrusion. The lateral meniscus is intact. LIGAMENTS AND TENDONS: The anterior and posterior cruciate ligaments are intact. The medial collateral ligament is intact. The iliotibial band, mid third lateral capsular ligament, fibular collateral ligament, biceps femoris tendon and conjoined tendon are intact. The quadriceps tendon and patella ligament are intact. JOINT: There are broad areas of full-thickness cartilage loss of the medial compartment. The lateral compartment and patellofemoral compartment cartilage is intact. There is no knee joint effusion, prominent synovitis, or identified intra-articular body. BONE: There is degenerative related marrow edema in the medial tibial plateau and less prominent degenerative related edema in the medial femoral condyle. There is no acute fracture, bone contusion, or evidence of osteonecrosis. BURSAE AND SOFT TISSUES: There is a lobulated ganglion cyst near the femoral attachment side of the medial head of gastrocnemius measuring 13 x 7 mm in size. IMPRESSION: 1. Extensive oblique tear involving the entire medial meniscus. No medial meniscal extrusion. 2. Intact lateral meniscus. 3. Intact anterior and posterior cruciate ligaments. Additional ligaments and tendons are intact. 4. Severe medial compartment osteoarthritis. No knee joint effusion. 5. No acute fracture, bone contusion, or evidence of osteonecrosis. Dictated by: Dictated on workstation # [id number]
== END ==
LOC: OCC 08:42
PROVIDERS: ATTEND Family Medicine
DX: S83.242A Other tear of medial meniscus, current injury, left knee, initial encounter (principal); W19.XXXA Unspecified fall, initial encounter; M17.12 Unilateral primary osteoarthritis, left knee
CPT/HCPCS: 73721

== ENCOUNTER → 2021-08-04 | Outpatient (REF) ==
--- NOTE | 2021-08-04 16:43 | Diagnostic Imaging Report ---
INDICATION: Left wrist pain. TECHNIQUE: AP, oblique, and lateral views of the left wrist are obtained. FINDINGS: No fracture or acute bony abnormality is seen. Joint spaces are unremarkable. IMPRESSION: Negative left wrist. Dictated by: Dictated on workstation # [id number]
== END ==
LOC: OCC 15:46
PROVIDERS: ATTEND Nurse Practitioner Family
DX: M25.532 Pain in left wrist (principal)
CPT/HCPCS: 73110

== ENCOUNTER 2021-10-29 16:15 | Outpatient (RCR) | payer OTHER ==
[~2021-10-29 16:15] MED LIST changes: -CITA10TA7 PO; +CITA10TA9 PO; -LISI1TAB29 PO; +LISI1TAB44 PO
== END 2021-10-31 | disposition home or self-care (01) ==
PROVIDERS: ATTEND Physician Assistant
DX: S83.242A Other tear of medial meniscus, current injury, left knee, initial encounter (principal); M17.12 Unilateral primary osteoarthritis, left knee; I10 Essential (primary) hypertension; W19.XXXA Unspecified fall, initial encounter

== ENCOUNTER 2021-11-13 10:45 | Outpatient (RCR) | payer OTHER | END 2021-11-19 10:00 | disposition home or self-care (01) | PROVIDERS: ATTEND Physician Assistant | DX: S83.242A Other tear of medial meniscus, current injury, left knee, initial encounter (principal); M17.12 Unilateral primary osteoarthritis, left knee; I10 Essential (primary) hypertension; W19.XXXA Unspecified fall, initial encounter ==

== ENCOUNTER → 2022-09-04 | Outpatient (CLI) | payer BC | LOC: CARD 08:04 | PROVIDERS: ATTEND Internal Medicine Cardiovascular Disease | DX: I10 Essential (primary) hypertension (principal) | CPT/HCPCS: 93306 ==